=== PATIENT | female | born 1975 | race American Indian/Alaskan Native ===

== ENCOUNTER 2016-10-14 14:35 | Inpatient (IN) | payer MEDICAID, OTHER ==
[2016-10-14 14:35] VITALS: BMI 23.8
--- NOTE | 2016-10-14 15:04 | ED PDOC ---
HPI: Psych/Substance Abuse Time Seen by Provider: 10/14/16 14:54 Chief Complaint (Nursing): Psychiatric Evaluation Chief Complaint (Provider): Psychiatric Evaluation History Per: Patient, Family (brother) History/Exam Limitations: no limitations Suicide/Self Injury Attempted (Context): None Associated Symptoms: denies: Suicidal Thoughts (denies), Other (no homicidal ideation or auditory/visual hallucinations) Involuntary Hold By: None Additional Complaint(s): Mita Estrella is a 41 year old female, with a past medical history inclusive of schizoaffective disorder, depression, OCD and panic disorder, who presents to the ED on 10/14/16, accompanied by her brother, for a psychiatric evaluation. Per brother, patient had been psychiatrically admitted to this facility 1 month ago, at which time she had been started on Wellbutrin. Patient lives alone and has reportedly been noncompliant with her medications, with brother expressing concerns that she is deteriorating and not taking care of herself. Upon interview, patient has no physical complaints and further denies suicidal/homicidal ideation or auditory/visual hallucinations. PMD: none Past Medical History Reviewed: Historical Data, Nursing Documentation, Vital Signs Vital Signs: Last Vital Signs Temp 98.4 F 10/14/16 14:48 Pulse 71 10/14/16 14:48 Resp 16 10/14/16 14:48 BP 128/68 10/14/16 14:48 Pulse Ox 100 10/14/16 14:48 - Medical History PMH: Depression, Schizophrenia (schizoaffective) Denies: Diabetes, Hepatitis, HIV, HTN, Chronic Kidney Disease, Seizures, Sexually Transmitted Disease Other PMH: OCD, panic disorder - Surgical History Other surgeries: myomectomy - Family History Family History: States: Diabetes, Other (suicide) - Living Arrangements Living Arrangements: Alone - Social History Current smoker - smoking cessation education provided: No Alcohol: None Drugs: Denies - Immunization History Hx Tetanus Toxoid Vaccination: No Hx Influenza Vaccination: No Hx Pneumococcal Vaccination: No - Home Medications Home Medications: Ambulatory Orders Medication Instructions Recorded ARIPiprazole [Abilify] 10 mg PO HS #30 tab 08/06/16 - Allergies Allergies/Adverse Reactions: Allergies Allergy/AdvReac Type Severity Reaction Status Date / Time aripiprazole [From Abilify] Allergy RASH Verified 10/14/16 14:48 Review of Systems ROS Statement: Except As Marked, All Systems Reviewed And Found Negative Psych: Positive for: Other (psychiatric evaluation). Negative for: Psychosis ( no auditory/visual hallucinations), Suicidal ideation (no homicidal ideation) Physical Exam - Reviewed Nursing Documentation Reviewed: Yes Vital Signs Reviewed: Yes - Physical Exam Appears: Positive for: Non-toxic, No Acute Distress Head Exam: Positive for: ATRAUMATIC, NORMOCEPHALIC Skin: Positive for: Normal Color, Warm, Dry Eye Exam: Positive for: Normal appearance, PERRL Cardiovascular/Chest: Positive for: Regular Rate, Rhythm. Negative for: Murmur Respiratory: Positive for: Normal Breath Sounds. Negative for: Respiratory Distress Gastrointestinal/Abdominal: Positive for: Normal Exam, Soft. Negative for: Tenderness Back: Positive for: Normal Inspection Extremity: Positive for: Normal ROM (moving all extremities) Neurologic/Psych: Positive for: Alert, Oriented, Mood/Affect (flat, detached) - Laboratory Results Result Diagrams: 10/14/16 15:48 10/14/16 15:48 - ECG Interpretation Of ECG: NSR 69 bpm, no acute finding, reviewed by PA and ED attending. O2 Sat by Pulse Oximetry: 100 (RA) Pulse Ox Interpretation: Normal - Other Rad chest x-ray X-Ray: Interpreted by Me, Viewed By Me X-Ray Interpretation: no acute finding Medical Decision Making Medical Decision Makin:54 Initial Impression: will clear patient medically for crisis evaluation Initial Plan: * Labs * Alcohol Serum * Upreg * Urine Drug Screen * Crisis Evaluation * Reevaluation 16:35 Patient has been evaluated by Crisis and meets criterion for psychiatric admission, with a diagnosis of schizophrenia as per Dr. Adams (psychiatrist extractions technician). Patient has agreed to sign in voluntarily for further treatment. Glucose is low at 60, patient given food tray, repeat fingerstick after eating was 94. Patient is medically stable for psychiatric admission. Scribe Attestation: Documented by Asmita Herman, acting as a scribe for Maribell Rodriguez PA-C. Provider Scribe Attestation: All medical record entries made by the Scribe were at my direction and personally dictated by me. I have reviewed the chart and agree that the record accurately reflects my personal performance of the history, physical exam, medical decision making, and the department course for this patient. I have also personally directed, reviewed, and agree with the discharge instructions and disposition. Disposition - Clinical Impression Clinical Impression: Schizophrenia - Patient ED Disposition Is Patient to be Admitted: Yes - Disposition Disposition Time: 17:40 Condition: FAIR - Pt Status Changed To: Hospital Disposition Of: Inpatient - Admit Certification Admit to Inpatient:: After my assessment, the patient will require hospitalization for at least two midnights. This is because of the severity of symptoms shown, intensity of services needed, and/or the medical risk in this patient being treated as an outpatient. - POA Present On Arrival: None Results - Lab Results Lab Results: 10/14/16 10/14/16 16:03 15:48 WBC 10.0 RBC 5.26 H Hgb 13.2 Hct 41.3 MCV 78.6 L MCH 25.1 L MCHC 32.0 L RDW 16.4 H Plt Count 285 MPV 8.8 Neut % (Auto) 72.3 Lymph % (Auto) 21.2 Gaines % (Auto) 5.0 Eos % (Auto) 0.4 Baso % (Auto) 1.1 Neut # 7.2 H Lymph # 2.1 Gaines # 0.5 Eos # 0.0 Baso # 0.1 Sodium 145 Potassium 3.8 Chloride 105 Carbon Dioxide 21 L Anion Gap 23 H BUN 8 Creatinine 0.8 Est GFR ( Amer) > 60 Est GFR (Non-Af Amer) > 60 Random Glucose 60 L Calcium 9.7 Total Bilirubin 0.8 AST 35 ALT 22 Alkaline Phosphatase 116 Total Protein 9.0 H Albumin 4.4 Globulin 4.6 H Albumin/Globulin Ratio 1.0 Urine Color Yellow Urine Clarity Slighty-cloudy Urine pH 6.0 Ur Specific [place] 1.027 Urine Protein 30 Urine Glucose (UA) Neg Urine Ketones Negative Urine Blood Negative Urine Nitrate Negative Urine Bilirubin Negative Urine Urobilinogen 0.2-1.0 Ur Leukocyte Esterase Neg Urine RBC (Auto) 5 H Urine Microscopic WBC 2 Ur Squamous Epith Cells 7 H Urine Bacteria Rare Urine Opiates Screen Negative Urine Methadone Screen Negative Ur Barbiturates Screen Negative Ur Phencyclidine Scrn Negative Ur Amphetamines Screen Negative U Benzodiazepines Scrn Negative U Oth Cocaine Metabols Negative U Cannabinoids Screen Negative Alcohol, Quantitative < 10
[2016-10-14 15:54] LABS: BASO # 0.1 K/uL (0.0-0.2); BASO % 1.1 % (0.0-2.0); EOS % 0.4 % (0.0-4.0); HEMATOCRIT 41.3 % (34.0-47.0); LYMPH # 2.1 K/uL (1.0-4.3); LYMPH % 21.2 % (20.0-40.0); MEAN CELL VOLUME 78.6 fl (81.0-99.0); MEAN CORPUSCULAR HEMOGLOBIN 25.1 pg (27.0-31.0); MEAN PLATELET VOLUME 8.8 fl (7.2-11.7); MONO # 0.5 K/uL (0.0-0.8); NEUT # 7.2 K/uL (1.8-7.0); NEUT % 72.3 % (50.0-75.0); RED CELL DISTRIBUTION WIDTH 16.4 % (11.5-14.5)
[2016-10-14 16:04] LABS: ALCOHOL SERUM < 10 mg/dl (0-10); ALKALINE PHOSPHATASE 116 U/L (38-126); ALT/SGPT 22 U/L (9-52); AST/SGOT 35 U/L (14-36); BILIRUBIN,TOTAL 0.8 mg/dl (0.2-1.3); BLOOD UREA NITROGEN 8 mg/dl (7-17); CALCIUM 9.7 mg/dL (8.4-10.2); CARBON DIOXIDE 21 mmol/L (22-30); CHLORIDE 105 mmol/L (98-107); GFR AFRICAN-AMERICAN > 60; GLUCOSE,RANDOM 60 mg/dL (65-105); POTASSIUM 3.8 MMOL/L (3.6-5.0); SODIUM 145 mmol/l (132-148)
[2016-10-14 17:04] LABS: RBC URINE 5 /hpf (0-3); URINE BACTERIA RARE (<OCC); URINE BILIRUBIN NEGATIVE (NEGATIVE); URINE BLOOD NEGATIVE (NEGATIVE); URINE COLOR YELLOW (YELLOW); URINE GLUCOSE (UA) NEG (Normal); URINE KETONE NEGATIVE (NEGATIVE); URINE LEUKOCYTE ESTERASE NEG Leu/uL (Negative); URINE PROTEIN 30 mg/dL (NEGATIVE); URINE UROBILINOGEN 0.2-1.0 mg/dL (0.2-1.0); WBC URINE 2 /hpf (0-5)
--- NOTE | 2016-10-14 18:05 | RAD ---
HISTORY: Medical clearance. Portable upright study 17:11. COMPARISON: No prior. FINDINGS: LUNGS: No active pulmonary disease. PLEURA: No significant pleural effusion identified, no pneumothorax apparent. CARDIOVASCULAR: Normal. OSSEOUS STRUCTURES: No significant abnormalities. VISUALIZED UPPER ABDOMEN: Normal. OTHER FINDINGS: None. IMPRESSION: No active disease. Concordant results with the preliminary interpretation rendered by the emergency department physician procedure.
[2016-10-14] MEDS ORDERED: DiphenhydrAMINE 50 mg/ml Inj IM PRN (18:53)
[2016-10-14] MEDS ORDERED: Magnesium Hydroxide Susp 30 ml UD PO PRN (18:53)
[2016-10-14] MEDS ORDERED: Alum-Mag Hydrox-Simethicone Susp (30 mL) PO PRN (18:53)
[2016-10-15 08:08] LABS: T4 7.13 ug/dl (5.5-11.0)
[2016-10-15 08:21] LABS: THYROID STIMULATING HORMONE 0.57 mIU/ML (0.46-4.68)
--- NOTE | 2016-10-15 12:40 | PCM.PSYCH ---
Initial Psychiatric Evaluation - Initial Psychiatric Evaluation Type of Admission: Voluntary Legal Status: Capacity Chief Complaint (in patient's own words): i need to go back on my wellbutrin Patient's Reaction to Hospitalization: cooperative History of Present Illness and Precipitating Events: 41 yo female, admitted twice previously here. she has been exhibiting psychotic/ ocd behaviors in the community. apparently she has lost her housing. she showed up at family's house on [place] wanting to move in. pt's behaviors are destructive at home. she is internally preoccupied, withdrawn, appears to be paranoid. she is minimizing her psychotic symptoms. she is focused on guilt over her mother's . she is ambivalent about receiving treatment and did not follow up with aftercare or medications after she left the hospital a few months ago. she is denying any suicidal thoughts currently. Current Medications: Active Medications Generic Name Dose Route Start Last Admin Trade Name Freq PRN Reason Stop Dose Admin Acetaminophen 650 mg 10/14/16 18:53 Tylenol 325mg Tab PO Q4 PRN Pain, moderate (4-7) Al Hydrox/Mg Hydrox/Simethicone 30 ml 10/14/16 18:53 Maalox Plus 30 Ml PO Q4 PRN Dyspepsia Diphenhydramine HCl 50 mg 10/14/16 18:53 Benadryl PO Q6 PRN Extrapyramidal Symptoms Diphenhydramine HCl 50 mg 10/14/16 18:53 Benadryl IM Q6 PRN Extrapyramidal S/S Unable PO Diphenhydramine HCl 50 mg 10/14/16 20:25 10/14/16 21:45 Benadryl PO 50 mg HS PRN Administration Sleep Haloperidol 5 mg 10/14/16 18:53 Haldol PO Q4 PRN Agitation Haloperidol Lactate 5 mg 10/14/16 18:53 Haldol IM Q4 PRN Agitation, Unable to Take PO Lorazepam 2 mg 10/14/16 18:53 10/14/16 21:45 Ativan PO 2 mg Q4 PRN Administration Anxiety/Agitation Lorazepam 2 mg 10/14/16 18:53 Ativan IM Q4 PRN Anxiety/Agitation,Unable PO Magnesium Hydroxide 30 ml 10/14/16 18:53 Milk Of Magnesia PO HS PRN Constipation Quetiapine Fumarate 25 mg 10/15/16 22:00 Seroquel PO HS CARLOS states sidney gave her a rash. she points to dry skin on her neck. Past Psychiatric History - Past Psychiatric History Previous Treatment History: Inpatient Prior Professional Help: has refused aftercare, refused medications in past History of Abuse: denies History of ETOH/Drug Use: denies History of Family Illness: denies Pertinent Medical Hx (Current Medical&Sleep Prob, Allergies): Allergies Allergy/AdvReac Type Severity Reaction Status Date / Time aripiprazole [From [place]] Allergy RASH Verified 10/14/16 14:48 per chart pt has uterine fibroids? Review of Systems - Psychiatric Psychiatric: As Per HPI Mental Status Examination - Personal Presentation Personal Presentation: Looks stated age - Affect Affect: Flat - Motor Activity Motor Activity: Calm - Reliability in Providing Information Reliability in Providing Information: Poor, due to alteration in thoughts - Speech Speech: Other (underproductive) - Mood Mood: Depressed - Formal Thought Process Formal Thought Process: Delusions, Paranoia, Other (thought blocking) - Obsessions/Compulsions Obsessions: Yes Compulsions: Yes Description of Obsession/Compulsion: per report engaging in ocd- washing behaviors at home - Cognitive Functions Orientation: Person, Place, Situation, Time Sensorium: Alert Attention/Concentration: Easily distracted Abstract Thinking: [place] Estimate of Intelligence: Average Judgement: Intact, as evidence by: Insight regarding need for hospitalization ( amvivalent about her treatment) Memory: Recent intact, as evidence by: Ability to recall events of the day, Remote intact, as evidenced by: Abilit to recall sig. life events - Risk Risk: Suicidal (denies current suicidal thoughts), Diminished functioning (has lost her home/usp placement. does not follow up with care, poor self care) - Strength & Assets Inventory Strength & Assets Inventory: Intelligence, Family support - Limitations Limitations: Other (homeless) DSM 5 DX - DSM 5 DSM 5 Diagnosis: schizophrenia, paranoid type - Recommended/Plan of Treatment Treatment Recommendations and Plan of Treatment: admit to [facility] for safety and observation gather collateral information provide supportive therapy adjust medications- pt will only agree to seroquel at night for sleep. discussed r/b/se with pt hospitalist consult disposition planning Projected ELOS: 5-7 days Prognosis: fair - Smoking Cessation Smoking Cessation Initiated: No Reason for not providing: declines
--- NOTE | 2016-10-15 18:09 | CARD ---
APPROVED REPORT EKG Measurement Heart [id number] <Conclusion> Normal sinus rhythm Normal ECG
--- NOTE | 2016-10-16 12:38 | PCM.PYCHPN ---
Psychiatric Progress Note - Psychiatric Progress Note Patient seen today, length of contact: discussed with team Patient Chief Complaint: i slept well Problems Identified/Issues Discussed: pt remains internally preoccupied. somewhat bizarre in her behaviors. refusing groups at times. she took seroquel and denies side effects. she reports improved sleep. Medication Change: Yes Medical Record Reviewed: Yes Mental Status Examination - Cognitive Function Orientation: Person, Place, Situation, Time Memory: Intact Attention: Poor Concentration: Poor Association: WNL Fund of Knowledge: Poor Decription of patient's judgement and insights: poor - Mood Mood: Depressed - Affect Affect: Flat - Speech Speech: Appropriate - Formal Thought Process Formal Thought Process: Delusions, Paranoia, Other (thought blocking) Psychotic Thoughts and Behaviors: internally preoccupied - Suicidal Ideation Suicidal Ideation: No - Homicidal Ideation Homicidal Ideation: No Goal/Treatment Plan - Goal/Treatment Plan Need for Continued Stay: Remain at risks for inpatient hospitalization, Severe functional impairment Progress Toward Problem(s) and Goals/Treatment Plan: schizophrenia pt needs further treatment will titrate up seroquel to target her psychotic symptoms Estimated Date of D/C: 10/22/16
--- NOTE | 2016-10-16 13:29 | CP.PCM.HP ---
History of Present Illness - History of Present Illness History of Present Illness: Hospitalist Consult H&P (Patient was seen and examined at 12 PM 10/16/16 [id number] with Psychiatry Nurse Cheli kramer) 41 year old female who was admitted to the in-patient Psychiatry Unit for treatment for Schizophrenia Paranoid Type Currently upon FULL ROS there is NO chest pain, NO palpitations, NO SOB/Cough/ Wheezing, NO dysphagia/odynophagia, NO abdominal pain, NO n/v/d/c (last bowel movement was yesterday), NO black/bloody stools, NO lightheadedness/dizziness, NO headaches, NO new changes in vision/eye pain, NO new changes in hearing/ear pain, NO edema, NO paresthesias PMHx: Anxiety/Depression PSHx: Myomectomy ALL: Aripiprazole Medications: Please see list below Social Hx: Homeless, NO tobacco, NO alcohol, NO illicit drugs Family Hx: Mom ( of complications of Diabetes), Dad (Healthy) Present on Admission - Present on Admission Any Indicators Present on Admission: Yes History of DVT/PE: No History of Uncontrolled Diabetes: No Urinary Catheter: No Review of Systems - Review of Systems Review of Systems: Please see above Past Patient History - Past Medical History & Family History Pertinent Family History: Please see above - Past Social History Alcohol: None Drugs: Denies - CARDIAC Hx Hypertension: No - PULMONARY Hx Tuberculosis: No - NEUROLOGICAL Hx Seizures: No - HEENT Hx HEENT Problems: No - RENAL Hx Chronic Kidney Disease: No - ENDOCRINE/METABOLIC Hx Endocrine Disorders: No - HEMATOLOGICAL/ONCOLOGICAL Hx Human Immunodeficiency Virus (HIV): No - INTEGUMENTARY Hx Dermatological Problems: No - MUSCULOSKELETAL/RHEUMATOLOGICAL Hx Musculoskeletal Disorders: No - GASTROINTESTINAL Hx Gastrointestinal Disorders: No - GENITOURINARY/GYNECOLOGICAL Hx Sexually Transmitted Disorders: No - PSYCHIATRIC Hx Substance Use: No - SURGICAL HISTORY Hx Surgeries: No Other/Comment: myomectomy 4 months ago - ANESTHESIA Hx Anesthesia: Yes Hx Anesthesia Reactions: No Hx Malignant Hyperthermia: No Meds Allergies/Adverse Reactions: Allergies Allergy/AdvReac Type Severity Reaction Status Date / Time aripiprazole [From Abilify] Allergy RASH Verified 10/14/16 14:48 Physical Exam - Constitutional Appears: Non-toxic, No Acute Distress - Head Exam Head Exam: ATRAUMATIC, NORMAL INSPECTION, NORMOCEPHALIC - Eye Exam Eye Exam: EOMI, Normal appearance, PERRL Pupil Exam: NORMAL ACCOMODATION, PERRL - ENT Exam ENT Exam: Mucous Membranes Moist, Normal Exam, Normal External Ear Exam, Normal Oropharynx - Neck Exam Neck exam: Positive for: Normal Inspection Additional comments: NO lymphadenopathy NO thyromegaly - Respiratory Exam Respiratory Exam: Clear to Auscultation Bilateral, NORMAL BREATHING PATTERN Additional comments: CTA B/L, NO R/R/W - Cardiovascular Exam Cardiovascular Exam: REGULAR RHYTHM, +S1, +S2 Additional comments: NO M/R/G - GI/Abdominal Exam GI & Abdominal Exam: Normal Bowel Sounds, Soft Additional comments: BSx4, Soft, NT, ND, NO HSM, NO guarding/rebound tenderness - Extremities Exam Extremities exam: Positive for: normal inspection Additional comments: NO edema Capillary Refill is 2 seconds Pulses are strong and equal - Neurological Exam Neurological exam: CN II-XII Intact Results - Vital Signs Recent Vital Signs: Last Vital Signs Temp 97.9 F 10/16/16 09:00 Pulse 65 10/16/16 09:00 Resp 16 10/16/16 09:00 BP 132/67 10/16/16 09:00 Pulse Ox 99 10/16/16 09:00 - Labs Result Diagrams: 10/14/16 15:48 10/14/16 15:48 Labs: Laboratory Results - last 24 hr 10/15/16 07:10 Hemoglobin A1c 5.5 RPR Nonreactive Assessment & Plan (1) Schizophrenia, paranoid type Assessment and Plan: Treatment as per Psychiatry Team Status: Acute (2) Anemia Assessment and Plan: Considering the RBC indices this is likely Iron Deficiency Anemia and Iron Studies have been ordered. If Iron Deficiency is confirmed then patient should be started on FeSO4 325 mg PO 2x/day, and she should be instructed to follow up with GI for Colonoscopy and with Marketing Executive for SENIOR MEDICAL TRANSCRIPTIONIST Exam/Pap Smear. Status: Acute
--- NOTE | 2016-10-17 11:18 | PCM.PYCHPN ---
Psychiatric Progress Note - Psychiatric Progress Note Patient seen today, length of contact: discussed with team Patient Chief Complaint: i am fine Problems Identified/Issues Discussed: pt reports good sleep. no c/o medication side effects. taking medication as prescribed. Medication Change: No Medical Record Reviewed: Yes Mental Status Examination - Cognitive Function Orientation: Person, Place, Situation, Time Memory: Intact Attention: Poor Concentration: Poor Association: WNL Fund of Knowledge: Poor Decription of patient's judgement and insights: improving insight - Mood Mood: Depressed - Affect Affect: Flat - Speech Speech: Appropriate - Formal Thought Process Formal Thought Process: Delusions, Paranoia, Other (thought blocking) - Suicidal Ideation Suicidal Ideation: No - Homicidal Ideation Homicidal Ideation: No Goal/Treatment Plan - Goal/Treatment Plan Need for Continued Stay: Remain at risks for inpatient hospitalization, Severe functional impairment Progress Toward Problem(s) and Goals/Treatment Plan: schizophrenia pt needs further treatment will titrate up seroquel to target her psychotic symptoms- hold at 50mg tonight and increase to 100mg tomorrow Estimated Date of D/C: 10/22/16
[2016-10-17 12:34] VITALS: O2SAT 80
[2016-10-17 12:48] LABS: IRON 77 ug/dL (37-170)
--- NOTE | 2016-10-18 11:40 | PCM.PYCHPN ---
Psychiatric Progress Note - Psychiatric Progress Note Patient seen today, length of contact: discussed with team Patient Chief Complaint: i am ok Problems Identified/Issues Discussed: pt isolates in room. when she was seen today, she is with sheets over head and she seems annoyed having to talk to this auto service writer. she reports she is sleeping through the night and denies medication side effects. she appears to be paranoid and internally preoccupied. Medication Change: Yes (increase seroquel) Medical Record Reviewed: Yes Mental Status Examination - Cognitive Function Orientation: Person, Place, Situation, Time Memory: Intact Attention: Poor Concentration: Poor Association: WNL Fund of Knowledge: Poor Decription of patient's judgement and insights: improving - Mood Mood: Depressed - Affect Affect: Flat - Speech Speech: Appropriate - Formal Thought Process Formal Thought Process: Delusions, Paranoia, Other (thought blocking) Psychotic Thoughts and Behaviors: paranoid - Suicidal Ideation Suicidal Ideation: No - Homicidal Ideation Homicidal Ideation: No Goal/Treatment Plan - Goal/Treatment Plan Need for Continued Stay: Remain at risks for inpatient hospitalization, Severe functional impairment Progress Toward Problem(s) and Goals/Treatment Plan: schizophrenia pt needs further treatment will titrate up seroquel to target her psychotic symptoms- increase to 75mg tonight Estimated Date of D/C: 10/22/16
--- NOTE | 2016-10-19 10:18 | PCM.PYCHPN ---
Psychiatric Progress Note - Psychiatric Progress Note Patient seen today, length of contact: discussed with team Patient Chief Complaint: i will be ok Problems Identified/Issues Discussed: pt still isolates in room. she takes her medications as prescribed. she does not interact with peers. she walks away from treatment providers when approached. she is refusing groups. Medication Change: Yes (increase seroquel to 100mg) Medical Record Reviewed: Yes Mental Status Examination - Cognitive Function Orientation: Person, Place, Situation, Time Memory: Intact Attention: Poor Concentration: Poor Association: WNL Fund of Knowledge: Poor Decription of patient's judgement and insights: fair - Mood Mood: Depressed - Affect Affect: Flat - Speech Speech: Appropriate - Formal Thought Process Formal Thought Process: Delusions, Paranoia, Other (thought blocking) Psychotic Thoughts and Behaviors: evasive - Suicidal Ideation Suicidal Ideation: No - Homicidal Ideation Homicidal Ideation: No Goal/Treatment Plan - Goal/Treatment Plan Need for Continued Stay: Remain at risks for inpatient hospitalization, Severe functional impairment Progress Toward Problem(s) and Goals/Treatment Plan: schizophrenia pt needs further treatment will titrate up seroquel to target her psychotic symptoms- increase to 100mg tonight Estimated Date of D/C: 10/22/16
--- NOTE | 2016-10-20 12:05 | PCM.PYCHPN ---
Psychiatric Progress Note - Psychiatric Progress Note Patient seen today, length of contact: discussed with team Patient Chief Complaint: i am ok Problems Identified/Issues Discussed: pt refusing groups. is taking medications. no c/o medication side effects. evasive and not interacting with staff/peers Medication Change: Yes (increase seroquel to 150mg) Medical Record Reviewed: Yes Mental Status Examination - Cognitive Function Orientation: Person, Place, Situation, Time Memory: Intact Attention: Poor Concentration: Poor Association: WNL Fund of Knowledge: Poor Decription of patient's judgement and insights: fair - Mood Mood: Depressed - Affect Affect: Flat - Speech Speech: Appropriate - Formal Thought Process Formal Thought Process: Delusions, Paranoia, Other (thought blocking) Psychotic Thoughts and Behaviors: evasive - Suicidal Ideation Suicidal Ideation: No - Homicidal Ideation Homicidal Ideation: No Goal/Treatment Plan - Goal/Treatment Plan Need for Continued Stay: Remain at risks for inpatient hospitalization, Severe functional impairment Progress Toward Problem(s) and Goals/Treatment Plan: schizophrenia pt needs further treatment will titrate up seroquel to target her psychotic symptoms- increase to 150mg tonight Estimated Date of D/C: 10/22/16
--- NOTE | 2016-10-21 11:37 | PCM.PYCHPN ---
Psychiatric Progress Note - Psychiatric Progress Note Patient seen today, length of contact: discussed with team Patient Chief Complaint: i feel fine Problems Identified/Issues Discussed: pt still refusing groups and with very limited peer interactions. she takes medication as prescribed. denies medication side effects. Medication Change: Yes (increase seroquel to 200mg) Medical Record Reviewed: Yes Mental Status Examination - Cognitive Function Orientation: Person, Place, Situation, Time Memory: Intact Attention: Poor Concentration: Poor Association: WNL Fund of Knowledge: Poor Decription of patient's judgement and insights: fair - Mood Mood: Depressed - Affect Affect: Flat - Speech Speech: Appropriate - Formal Thought Process Formal Thought Process: Delusions, Paranoia, Other (thought blocking) Psychotic Thoughts and Behaviors: evasive/internally preoccupied - Suicidal Ideation Suicidal Ideation: No - Homicidal Ideation Homicidal Ideation: No Goal/Treatment Plan - Goal/Treatment Plan Need for Continued Stay: Remain at risks for inpatient hospitalization, Severe functional impairment Progress Toward Problem(s) and Goals/Treatment Plan: schizophrenia pt needs further treatment will titrate up seroquel to target her psychotic symptoms- increase to 200mg tonight Estimated Date of D/C: 10/28/16
--- NOTE | 2016-10-22 09:30 | PCM.PYCHDC ---
Mental Status Examination - Mental Status Examination Orientation: Person, Place, Situation, Time Memory: Intact Mood: Neutral Affect: Flat Speech: Soft Attention: Poor Concentration: Poor Association: Loose Fund of Knowledge: WNL Formal Thought Process: Paranoia, Other (internally preoccupied) Description of patient's judgement and insight: poor insight Psychotic Thoughts and Behaviors: evasive/internally preoccupied Suicidal Ideation: No Current Homicidal Ideation?: No Discharge Summary - Discharge Note Reason for Hospitalization: psychosis Psychiatric History (includes Medical, Family, Personal Hx): history of previous admissions for psychotic behaviors. Consultations:: List each consultation separately and include: 1. Reason for request. 2. Findings. 3. Follow-up Consultations: seen by the hospitalist Summary of Hospital Course include:: 1. Description of specific treatment plan utilized for patients during their course of treatmen. 2. Summarize the time- course for resolution of acute symptoms and/or regressed behaviors. 3. Describe issues identified and worked on during hospitalization. 4. Describe medication utilized. 5. Describe medical problems identified and treated. 6. Reassessment of suicide risk Summary of Hospital Course: 41 yo female, admitted twice previously here. she has been exhibiting psychotic/ ocd behaviors in the community. apparently she has lost her housing. she showed up at family's house on [address] wanting to move in. pt's behaviors are destructive at home. she is internally preoccupied, withdrawn, appears to be paranoid. she is minimizing her psychotic symptoms. she is focused on guilt over her mother's . she is ambivalent about receiving treatment and did not follow up with aftercare or medications after she left the hospital a few months ago. she is denying any suicidal thoughts currently. hospital course pt was admitted to [facility] and oriented to the unit. pt was placed on routine safety protocols. pt was seen by the hospitalist. she was started on abilify which she refused to take. she agreed to take seroquel and the dose was titrated up to 150mg hs. she was taking medications as prescribed and did not c/ o side effects. she was still isolative and internally preoccupied. she signed a 48 hour notice to leave the hospital. the team encouraged the pt to stay and continue to get treatment, however the pt was insistent on leaving. she was denying a/v hallucinations and was denying suicidal or homicidal thoughts at the time of discharge. her prescriptions were eprescribed to the [facility] pharmacy. - Final Diagnosis (DSM 5) Condition upon Discharge: FAIR DSM 5: schizophrenia, paranoid Disposition: HOME/ ROUTINE Follow-up Treatment Plan: follow up with aftercare as directed take medications as prescribed do not use alcohol, tobacco or other illicit substances call 911 if any suicidal or homicidal thoughts Prescriptions/Medication Reconciliation: QUEtiapine [SEROquel] 150 mg PO HS #45 tab - Smoking Cessation Smoking Cessation Medication prescribed: No Reason for not providing: declines - Antipsychotic Medications Pt discharged on 2 or more routine antipsychotic medications: No
[2016-10-22 12:22] VITALS: BP 109/70; PULSE 66; TEMP 97.7
[2016-10-22 16:53] VITALS: RESP 16
== END 2016-10-22 20:20 | disposition home or self-care (01) | DRG 430 ==
LOC: H.ER 14:35 → H.ERHOLD 16:41 → H.PSYCH 18:44
PROVIDERS: ADMIT Psychiatry & Neurology Psychiatry; ATTEND Psychiatry & Neurology Psychiatry
PROC: GZHZZZZ Group Psychotherapy (ICD-10-PCS; principal; 2016-10-14)
PROC: GZ56ZZZ Individual Psychotherapy, Supportive (ICD-10-PCS; 2016-10-14)
DX: F20.0 Paranoid schizophrenia (principal); Z91.14 Patient's other noncompliance with medication regimen; D50.9 Iron deficiency anemia, unspecified

== ENCOUNTER 2017-01-04 00:33 | Inpatient (IN) | payer SELFPAY ==
[2017-01-04 00:33] VITALS: BMI 23.8
--- NOTE | 2017-01-04 02:35 | ED PDOC ---
HPI: Psych/Substance Abuse Time Seen by Provider: 01/04/17 01:22 Chief Complaint (Nursing): Psychiatric Evaluation Chief Complaint (Provider): Psychiatric Evaluation History Per: Family (Brother) History/Exam Limitations: no limitations Current Symptoms Are (Timing): Still Present Suicide/Self Injury Attempted (Context): None Modifying Factor(s): None Additional History Per: Patient Additional Complaint(s): 41 year old female brought in by brother presents to ED for a psychiatric evaluation secondary to bizarre, erratic behavior and has a past medical history of paranoid schizophrenia. Brother states that patient is having hallucinations of rats in their home even though there are not present. Notes that patient ran out of the house and refuses to return. Brother states that patient has been noncompliant with her medications x2 months and has not followed up with her psychiatrist since last being discharged from the hospital. Brother also notes patient responding to internal stimuli, causing her to laugh to herself. Upon arrival to ED, patient denies all complaints ( hallucinations, suicidal/homicidal ideation) and desires a "clean place to stay ". PCP: None Past Medical History Reviewed: Historical Data, Nursing Documentation, Vital Signs Vital Signs: Last Vital Signs Temp 98.3 F 01/04/17 00:52 Pulse 84 01/04/17 00:52 Resp 16 01/04/17 00:52 BP 128/85 01/04/17 00:52 Pulse Ox 100 01/04/17 00:52 - Medical History PMH: Depression, Schizophrenia (schizoaffective) Denies: Diabetes, Hepatitis, HIV, HTN, Chronic Kidney Disease, Seizures, Sexually Transmitted Disease - Surgical History Surgical History: No Surg Hx - Family History Family History: States: Diabetes Denies: No Known Family Hx - Living Arrangements Living Arrangements: With Family - Social History Current smoker - smoking cessation education provided: No Ex-Smoker (has not smoked in the last 12 months): No Alcohol: None Drugs: Denies - Immunization History Hx Tetanus Toxoid Vaccination: No Hx Influenza Vaccination: No Hx Pneumococcal Vaccination: No - Home Medications Home Medications: Ambulatory Orders Medication Instructions Recorded No Known Home Med 01/04/17 - Allergies Allergies/Adverse Reactions: Allergies Allergy/AdvReac Type Severity Reaction Status Date / Time aripiprazole [From Abilify] Allergy RASH Verified 10/14/16 14:48 Review of Systems ROS Statement: Except As Marked, All Systems Reviewed And Found Negative (ROS as per brother, not patient) Psych: Positive for: Psychosis (hallucinations, responding to internal stimuli) . Negative for: Suicidal ideation, Other (homicidal ideation) Physical Exam - Reviewed Nursing Documentation Reviewed: Yes Vital Signs Reviewed: Yes - Physical Exam Appears: Positive for: Non-toxic, No Acute Distress Head Exam: Positive for: ATRAUMATIC Skin: Positive for: Normal Color, Warm, Dry Eye Exam: Positive for: Normal appearance ENT: Positive for: Normal ENT Inspection Neck: Positive for: Normal, Painless ROM, Supple Cardiovascular/Chest: Positive for: Regular Rate, Rhythm. Negative for: Murmur Respiratory: Positive for: Normal Breath Sounds. Negative for: Respiratory Distress Gastrointestinal/Abdominal: Positive for: Normal Exam, Soft. Negative for: Tenderness Back: Positive for: Normal Inspection Extremity: Positive for: Normal ROM. Negative for: Deformity Neurologic/Psych: Positive for: Alert, Oriented, Other (appears internally preoccupied). Negative for: Motor/Sensory Deficits - Laboratory Results Result Diagrams: 01/04/17 02:25 01/04/17 02:25 - ECG O2 Sat by Pulse Oximetry: 100 (RA) Pulse Ox Interpretation: Normal Medical Decision Making Medical Decision Makin Initial impression: delusional behavior in setting of known paranoid schizophrenia (noncompliant) Initial plan: * EKG * EtOH serum * Labs * UDrug screen * Crisis eval * UA 0245 Patient was evaluated by crisis and will be admitted for further treatment and stability under Dr. Tariq Estevez Dx: paranoid schizophrenia Condition: fair 0433 Patient is medically stable for psychiatric admission. Scribe Attestation: Documented by Joyce Gutiérrez acting as a scribe for Emanuel Oliva MD. Scribe Attestation: All medical record entries made by the Scribe were at my direction and personally dictated by me. I have reviewed the chart and agree that the record accurately reflects my personal performance of the history, physical exam, medical decision making, and the department course for this patient. I have also personally directed, reviewed, and agree with the discharge instructions and disposition. Disposition - Clinical Impression Clinical Impression: Schizophrenia, paranoid type - Patient ED Disposition Is Patient to be Admitted: Yes Doctor Will See Patient In The: Hospital Counseled Patient/Family Regarding: Diagnosis - Disposition Disposition Time: 02:45 Condition: FAIR - Pt Status Changed To: Hospital Disposition Of: Inpatient - Admit Certification Admit to Inpatient:: After my assessment, the patient will require hospitalization for at least two midnights. This is because of the severity of symptoms shown, intensity of services needed, and/or the medical risk in this patient being treated as an outpatient.
[2017-01-04 02:46] LABS: ALBUMIN 4.2 g/dL (3.5-5.0)
[2017-01-04 02:48] LABS: GFR AFRICAN-AMERICAN > 60; GFR NON-AFRICAN AMERICAN > 60
[2017-01-04 02:49] LABS: ALT/SGPT 29 U/L (9-52); AST/SGOT 32 U/L (14-36); BLOOD UREA NITROGEN 18 mg/dl (7-17); CALCIUM 9.5 mg/dL (8.4-10.2)
[2017-01-04 03:04] LABS: MEAN CELL VOLUME 80.2 fl (81.0-99.0); RBC 5.09 Mil/uL (3.80-5.20); WHITE BLOOD COUNT 11.4 K/uL (4.8-10.8)
[2017-01-04 03:05] LABS: BASO # 0.1 K/uL (0.0-0.2); BASO % 0.5 % (0.0-2.0); EOS # 0.1 K/uL (0.0-0.7); EOS % 1.2 % (0.0-4.0); LYMPH # 1.8 K/uL (1.0-4.3); LYMPH % 15.5 % (20.0-40.0); MEAN CORPUSCULAR HEMOGLOBIN 25.6 pg (27.0-31.0); MEAN CORPUSCULAR HGB CONC 31.9 g/dL (33.0-37.0); MEAN PLATELET VOLUME 9.6 fl (7.2-11.7); MONO # 0.9 K/uL (0.0-0.8); MONO % 7.8 % (0.0-10.0); NEUT # 8.6 K/uL (1.8-7.0); RED CELL DISTRIBUTION WIDTH 16.5 % (11.5-14.5)
[2017-01-04 03:55] LABS: BARBITURATES, UR NEGATIVE (NEGATIVE)
[2017-01-04 03:56] LABS: BENZODIAZEPINES, UR NEGATIVE (NEGATIVE)
[2017-01-04 03:59] LABS: OPIATES, UR NEGATIVE (NEGATIVE)
[2017-01-04 04:00] LABS: PHENCYCLIDINE, UR NEGATIVE (NEGATIVE)
[2017-01-04 04:10] LABS: SQUAMOUS EPITHIAL 1 /hpf (0-5); URINE BILIRUBIN NEGATIVE (NEGATIVE); URINE BLOOD MODERATE (NEGATIVE); URINE CALCIUM OXALATE CRYSTALS OCC /hpf (<OCC); URINE CLARITY CLEAR (Clear); URINE COLOR YELLOW (YELLOW); URINE GLUCOSE (UA) NEG (Normal); URINE LEUKOCYTE ESTERASE NEG Leu/uL (Negative); URINE NITRATE NEGATIVE (NEGATIVE); URINE PROTEIN 30 mg/dL (NEGATIVE); URINE UROBILINOGEN 0.2-1.0 mg/dL (0.2-1.0)
[2017-01-04 04:34] VITALS: O2SAT 100
[2017-01-04] MEDS ORDERED: Alum-Mag Hydrox-Simethicone Susp (30 mL) PO PRN (04:55)
[2017-01-04] MEDS ORDERED: DiphenhydrAMINE 50 mg/ml Inj IM PRN (04:55)
[2017-01-04] MEDS ORDERED: Magnesium Hydroxide Susp 30 ml UD PO PRN (04:55)
[2017-01-04] MEDS ORDERED: Bismuth Subsalicylate 262 mg/15 ml Sus (240 ml) PO PRN (04:59)
[2017-01-04 07:32] LABS: T4 7.37 ug/dl (5.5-11.0)
--- NOTE | 2017-01-04 08:33 | CARD ---
APPROVED REPORT EKG Measurement Heart [id number] <Conclusion> Normal sinus rhythm Normal ECG
--- NOTE | 2017-01-04 14:08 | PCM.PSYCH ---
Initial Psychiatric Evaluation - Initial Psychiatric Evaluation Type of Admission: Voluntary Legal Status: Capacity Chief Complaint (in patient's own words): i saw a rat Patient's Reaction to Hospitalization: signed a 48 hour notice History of Present Illness and Precipitating Events: 41 yo female who has been hospitalized 3 previous times for psychotic symptoms. she has been homeless but was apparently staying at her brothers. per the crisis report the brother had pt sent to ER because of his concerns with pt's psychotic symptoms- living in [facility], burning candles near the curtains in order to protect herself, not caring for her own adls, not leaving the home. pt seems to have decompensated since her mother's . she admits to being depressed, but states she doesn't take medications because "i need a year prescription" she does not follow up with aftercare. pt signed herself into the hosptial when encouraged by pes, but signed a 48 hour notice immediately after her arrival on the unit. she is isolating in her room and hiding under her blankets. she denies needing help and states she will only take paxil or seroquel. she denies having a disturbance of thoughts. she denies that her behavior has changed even when reminded that she was living on her own and working in the recent past. we discussed this poem writer's opinion that pt needs treatment she continues to deny needing treatment. Current Medications: Active Medications Generic Name Dose Route Start Last Admin Trade Name Freq PRN Reason Stop Dose Admin Acetaminophen 650 mg 01/04/17 04:59 Tylenol 325mg Tab PO Q4 PRN Pain, moderate (4-7) Al Hydrox/Mg Hydrox/Simethicone 30 ml 01/04/17 04:55 Maalox Plus 30 Ml PO Q4 PRN Dyspepsia Bismuth Subsalicylate 524 mg 01/04/17 04:59 Pepto-Bismol PO Q4 PRN Diarrhea Diphenhydramine HCl 50 mg 01/04/17 04:55 Benadryl IM Q6 PRN Extrapyramidal S/S Unable PO Diphenhydramine HCl 50 mg 01/04/17 04:55 Benadryl PO Q6 PRN Extrapyramidal Symptoms Diphenhydramine HCl 50 mg 01/04/17 04:59 Benadryl PO HS PRN Sleep Haloperidol 5 mg 01/04/17 04:55 Haldol PO Q4 PRN Agitation Haloperidol Lactate 5 mg 01/04/17 04:55 Haldol IM Q4 PRN Agitation, Unable to Take PO Lorazepam 2 mg 01/04/17 04:55 Ativan IM Q4 PRN Anxiety/Agitation,Unable PO Lorazepam 2 mg 01/04/17 04:55 Ativan PO Q4 PRN Anxiety/Agitation Magnesium Hydroxide 30 ml 01/04/17 04:55 Milk Of Magnesia PO HS PRN Constipation Quetiapine Fumarate 50 mg 01/04/17 22:00 Seroquel PO HS CARLOS does not follow up with aftercare Past Psychiatric History - Past Psychiatric History Previous Treatment History: Inpatient Prior Professional Help: does not follow up with aftercare treatment At what hospital: [facility] History of Abuse: denies History of ETOH/Drug Use: denies. uds is negative History of Family Illness: denies Pertinent Medical Hx (Current Medical&Sleep Prob, Allergies): Allergies Allergy/AdvReac Type Severity Reaction Status Date / Time aripiprazole [From Abilify] Allergy RASH Verified 10/14/16 14:48 No Known Home Med 01/04/17 Review of Systems - Psychiatric Psychiatric: As Per HPI, Abnormal Sleep Pattern, Behavioral Changes, Confusion, Depression, Difficulty Concentrating, Irritability, Paranoia Mental Status Examination - Personal Presentation Personal Presentation: Looks stated age Additional comments: hiding under sheets, sits up and removes sheets but avoids eye contact. - Affect Affect: Blunted - Motor Activity Motor Activity: Calm - Reliability in Providing Information Reliability in Providing Information: Poor, due to alteration in thoughts - Speech Speech: Other (evasive, vague) - Mood Mood: Depressed - Formal Thought Process Formal Thought Process: Delusions, Paranoia, Loosening of associations Additional comments: illogica, bizarre, guarded, paranoid - Hallucinations/Delusions Delusions: Persecution - Obsessions/Compulsions Obsessions: No Compulsions: No - Cognitive Functions Orientation: Person, Place, Situation, Time Sensorium: Alert Attention/Concentration: Easily distracted Abstract Thinking: [place] Estimate of Intelligence: Average Judgement: Imparied, as evidence by: Lack of insight into illness Memory: Recent intact, as evidence by: Ability to recall events of the day - Risk Risk: Suicidal (denies a/v hallucinations), Diminished functioning (unable to work or maintain a home, not caring for self, endagering safety of others) - Strength & Assets Inventory Strength & Assets Inventory: Family support, Employment history - Limitations Limitations: Other (does not follow up with treatment) DSM 5 DX - DSM 5 DSM 5 Diagnosis: schizophrenia, paranoid - Recommended/Plan of Treatment Treatment Recommendations and Plan of Treatment: admit to 3 for safety and observation gather collateral information provide supportive therapy adjust medications- start seroquel- pt gives consent and has taken hospitalist consult disposition planning- will screen for involuntary hospitalization as pt is a danger to self and others/property secondary to her decompensated mental illness which has resulted in a gross disturbance in her thoughts. she is denying need for treatment and has had 3 previous admissions without improvement and did not follow up with aftercare. family is expressing fears for patient's safety in the home and pt has lost her other housing options due to her behaviors and refusal to follow up with treatment. Projected ELOS: 3-5 days Prognosis: poor
--- NOTE | 2017-01-04 20:35 | CP.PCM.CON ---
History of Present Illness - History of Present Illness History of Present Illness: 41 yo female admitted to psyche unit because of psychotic symptoms and bizzare behaviour. Review of Systems - Review of Systems All systems: reviewed and no additional remarkable complaints except (aside from those mentioned above, 12 point system review were negative by me) Past Patient History - Past Social History Smoking Status: Unknown If Ever Smoked Alcohol: None Drugs: Denies - CARDIAC Hx Hypertension: No - PULMONARY Hx Tuberculosis: No - NEUROLOGICAL Hx Seizures: No - HEENT Hx HEENT Problems: No - RENAL Hx Chronic Kidney Disease: No - ENDOCRINE/METABOLIC Hx Endocrine Disorders: No - HEMATOLOGICAL/ONCOLOGICAL Hx Human Immunodeficiency Virus (HIV): No - INTEGUMENTARY Hx Dermatological Problems: No - MUSCULOSKELETAL/RHEUMATOLOGICAL Hx Musculoskeletal Disorders: No - GASTROINTESTINAL Hx Gastrointestinal Disorders: No - GENITOURINARY/GYNECOLOGICAL Hx Sexually Transmitted Disorders: No - PSYCHIATRIC Hx Substance Use: No - SURGICAL HISTORY Hx Surgeries: No Other/Comment: myomectomy 4 months ago - ANESTHESIA Hx Anesthesia: Yes Hx Anesthesia Reactions: No Hx Malignant Hyperthermia: No Meds Allergies/Adverse Reactions: Allergies Allergy/AdvReac Type Severity Reaction Status Date / Time aripiprazole [From [facility]] Allergy RASH Verified 10/14/16 14:48 - Medications Medications: Current Medications Acetaminophen (Tylenol 325mg Tab) 650 mg PO Q4 PRN PRN Reason: Pain, moderate (4-7) Al Hydrox/Mg Hydrox/Simethicone (Maalox Plus 30 Ml) 30 ml PO Q4 PRN PRN Reason: Dyspepsia Bismuth Subsalicylate (Pepto-Bismol) 524 mg PO Q4 PRN PRN Reason: Diarrhea Diphenhydramine HCl (Benadryl) 50 mg IM Q6 PRN PRN Reason: Extrapyramidal S/S Unable PO Diphenhydramine HCl (Benadryl) 50 mg PO Q6 PRN PRN Reason: Extrapyramidal Symptoms Diphenhydramine HCl (Benadryl) 50 mg PO HS PRN PRN Reason: Sleep Haloperidol (Haldol) 5 mg PO Q4 PRN PRN Reason: Agitation Haloperidol Lactate (Haldol) 5 mg IM Q4 PRN PRN Reason: Agitation, Unable to Take PO Lorazepam (Ativan) 2 mg IM Q4 PRN PRN Reason: Anxiety/Agitation,Unable PO Lorazepam (Ativan) 2 mg PO Q4 PRN PRN Reason: Anxiety/Agitation Magnesium Hydroxide (Milk Of Magnesia) 30 ml PO HS PRN PRN Reason: Constipation Quetiapine Fumarate (Seroquel) 50 mg PO HS CARLOS Physical Exam - Head Exam Head Exam: ATRAUMATIC - Eye Exam Eye Exam: absent: Scleral icterus - ENT Exam ENT Exam: Mucous Membranes Moist - Neck Exam Neck exam: Negative for: Meningismus - Respiratory Exam Respiratory Exam: absent: Rhonchi, Wheezes, Respiratory Distress - Cardiovascular Exam Cardiovascular Exam: REGULAR RHYTHM, +S1, +S2 - GI/Abdominal Exam GI & Abdominal Exam: Soft. absent: Tenderness - Rectal Exam Rectal Exam: Deferred - Neurological Exam Neurological exam: Alert, Oriented x3 - Psychiatric Exam Psychiatric exam: Normal Affect - Skin Skin Exam: Dry, Intact Results - Vital Signs Recent Vital Signs: Last Vital Signs Temp 97.6 F 01/04/17 16:10 Pulse 68 01/04/17 16:10 Resp 20 01/04/17 16:10 BP 102/58 L 01/04/17 16:10 Pulse Ox 100 01/04/17 04:34 - Labs Result Diagrams: 01/04/17 02:25 01/04/17 02:25 Labs: Laboratory Results - last 24 hr 01/04/17 01/04/17 01/04/17 03:42 03:42 06:40 Hemoglobin A1c Triglycerides 46 D Cholesterol 141 LDL Cholesterol Direct 74 HDL Cholesterol 47 Thyroxine (T4) 7.37 TSH 3rd Generation 0.64 Urine Color Yellow Urine Clarity Clear Urine pH 5.0 Ur Specific [place] 1.031 H Urine Protein 30 Urine Glucose (UA) Neg Urine Ketones 20 Urine Blood Moderate Urine Nitrate Negative Urine Bilirubin Negative Urine Urobilinogen 0.2-1.0 Ur Leukocyte Esterase Neg Urine RBC (Auto) 4 H Urine Microscopic WBC 2 Ur Squamous Epith Cells 1 Calcium Oxalate Crystal Occ H Urine Opiates Screen Negative Urine Methadone Screen Negative Ur Barbiturates Screen Negative Ur Phencyclidine Scrn Negative Ur Amphetamines Screen Negative U Benzodiazepines Scrn Negative U Oth Cocaine Metabols Negative U Cannabinoids Screen Negative RPR 01/04/17 01/04/17 06:40 06:40 Hemoglobin A1c 5.6 Triglycerides Cholesterol LDL Cholesterol Direct HDL Cholesterol Thyroxine (T4) TSH 3rd Generation Urine Color Urine Clarity Urine pH Ur Specific [place] Urine Protein Urine Glucose (UA) Urine Ketones Urine Blood Urine Nitrate Urine Bilirubin Urine Urobilinogen Ur Leukocyte Esterase Urine RBC (Auto) Urine Microscopic WBC Ur Squamous Epith Cells Calcium Oxalate Crystal Urine Opiates Screen Urine Methadone Screen Ur Barbiturates Screen Ur Phencyclidine Scrn Ur Amphetamines Screen U Benzodiazepines Scrn U Oth Cocaine Metabols U Cannabinoids Screen RPR Nonreactive Assessment & Plan (1) Schizophrenia Status: Acute Comment: psyche is managing
[2017-01-05 09:19] VITALS: PULSE 76; RESP 18; TEMP 98.1
--- NOTE | 2017-01-05 13:20 | PCM.PYCHPN ---
Psychiatric Progress Note - Psychiatric Progress Note Patient seen today, length of contact: in treatment team Patient Chief Complaint: i signed a 48 hour notice and i'll leave tomorrow Problems Identified/Issues Discussed: pt came to treatment team. she refuses to acknowledge she is screened and going to [facility] and insists she must leave because she signed a 48 hour notice. continues to state "you can't keep me just because i saw a rat" team tried to explain process of 48 hour notice and voluntary/involuntary admission to pt and she interrupted and refused to listen. informed pt she could talk to pt advocate. she did take her medications as prescribed last night Medication Change: No Medical Record Reviewed: Yes Mental Status Examination - Cognitive Function Orientation: Person, Place, Situation, Time Memory: Intact Attention: Poor Concentration: Poor Association: Loose Fund of Knowledge: Poor Decription of patient's judgement and insights: poor i/j - Mood Mood: Depressed, Anxious - Affect Affect: Blunted - Speech Speech: Appropriate - Formal Thought Process Formal Thought Process: Delusions, Paranoia, Loosening of associations, Perservation (regarding leaving the hospital) Psychotic Thoughts and Behaviors: disorganized appearance and behaviors. - Suicidal Ideation Suicidal Ideation: No - Homicidal Ideation Homicidal Ideation: No Goal/Treatment Plan - Goal/Treatment Plan Need for Continued Stay: Remain at risks for inpatient hospitalization, Severe functional impairment Progress Toward Problem(s) and Goals/Treatment Plan: schizophrenia, paranoid vs mdd with psychosis pt needs further treatment and stabilization and is awaiting transfer to [facility]. Estimated Date of D/C: 01/06/17
[2017-01-05 22:46] VITALS: BP 120/70
--- NOTE | 2017-01-06 15:09 | PCM.PYCHDC ---
Mental Status Examination - Mental Status Examination Orientation: Person, Place, Situation, Time Mood: Depressed Association: Loose Formal Thought Process: Delusions, Paranoia, Loosening of associations Description of patient's judgement and insight: poor i/j Psychotic Thoughts and Behaviors: disorganized appearance and behaviors. Suicidal Ideation: No Current Homicidal Ideation?: No Discharge Summary - Discharge Note Reason for Hospitalization: pt's family called mobile outreach after concerns with pt's behavior Psychiatric History (includes Medical, Family, Personal Hx): history of depression, psychosis. non-adherence to treatment Consultations:: List each consultation separately and include: 1. Reason for request. 2. Findings. 3. Follow-up Consultations: seen by hospitalist Summary of Hospital Course include:: 1. Description of specific treatment plan utilized for patients during their course of treatmen. 2. Summarize the time- course for resolution of acute symptoms and/or regressed behaviors. 3. Describe issues identified and worked on during hospitalization. 4. Describe medication utilized. 5. Describe medical problems identified and treated. 6. Reassessment of suicide risk Summary of Hospital Course: 41 yo female who has been hospitalized 3 previous times for psychotic symptoms. she has been homeless but was apparently staying at her brothers. per the crisis report the brother had pt sent to ER because of his concerns with pt's psychotic symptoms- living in squallor, burning candles near the curtains in order to protect herself, not caring for her own adls, not leaving the home. pt seems to have decompensated since her mother's . she admits to being depressed, but states she doesn't take medications because "i need a year prescription" she does not follow up with aftercare. pt signed herself into the hosptial when encouraged by pes, but signed a 48 hour notice immediately after her arrival on the unit. she is isolating in her room and hiding under her blankets. she denies needing help and states she will only take paxil or seroquel. she denies having a disturbance of thoughts. she denies that her behavior has changed even when reminded that she was living on her own and working in the recent past. we discussed this radio news writer's opinion that pt needs treatment she continues to deny needing treatment. hospital course pt was admitted to [facility] and oriented to the unit. she was seen by the hospitalist. she was seen by the treatment team. pt signed a 48 hour notice upon arrival to floor and was screened for involuntary hospitalization after this. she was found to meet criteria for further assessment and was [place] [facility] she was agreeing to take seroquel at time of discharge but was denying having any mental illness. - Final Diagnosis (DSM 5) Condition upon Discharge: FAIR DSM 5: psychotic disorder, unspecified r/o mdd with psychosis vs schizophrenia Disposition: Transfer [facility] Follow-up Treatment Plan: [place] [facility] [place] assessment and treatment - Smoking Cessation Smoking Cessation Medication prescribed: No - Antipsychotic Medications Pt discharged on 2 or more routine antipsychotic medications: No
== END 2017-01-05 23:45 | DRG 885 ==
LOC: H.ER 00:33 → H.ERHOLD 02:31 → H.STEP 04:53 → H.PSYCH 20:12
PROVIDERS: ADMIT Psychiatry & Neurology Psychiatry; ATTEND Psychiatry & Neurology Psychiatry
PROC: GZ56ZZZ Individual Psychotherapy, Supportive (ICD-10-PCS; principal; 2017-01-04)
DX: F29 Unspecified psychosis not due to a substance or known physiological condition (principal); Z91.19 Patient's noncompliance with other medical treatment and regimen

== ENCOUNTER 2017-02-11 01:19 | Observation (INO) | payer MEDICAID ==
[2017-02-11 01:19] VITALS: BMI 23.8
[2017-02-11 02:10] LABS: BASO # 0.1 K/uL (0.0-0.2); BASO % 0.8 % (0.0-2.0); EOS # 0.1 K/uL (0.0-0.7); EOS % 1.3 % (0.0-4.0); HEMATOCRIT 39.8 % (34.0-47.0); LYMPH # 2.4 K/uL (1.0-4.3); LYMPH % 28.8 % (20.0-40.0); MEAN CELL VOLUME 80.3 fl (81.0-99.0); MEAN CORPUSCULAR HEMOGLOBIN 25.9 pg (27.0-31.0); MEAN CORPUSCULAR HGB CONC 32.3 g/dL (33.0-37.0); MEAN PLATELET VOLUME 8.6 fl (7.2-11.7); MONO # 0.4 K/uL (0.0-0.8); MONO % 5.3 % (0.0-10.0); NEUT # 5.3 K/uL (1.8-7.0); NEUT % 63.8 % (50.0-75.0); NRBC % 0.1 % (0.0-0.0); RED CELL DISTRIBUTION WIDTH 15.2 % (11.5-14.5); WHITE BLOOD COUNT 8.3 K/uL (4.8-10.8)
[2017-02-11 02:26] LABS: ALB/GLOB RATIO 1.1 (1.0-2.1); ALCOHOL SERUM < 10 mg/dl (0-10); ALKALINE PHOSPHATASE 120 U/L (38-126); ALT/SGPT 32 U/L (9-52); AST/SGOT 21 U/L (14-36); BILIRUBIN,TOTAL 0.7 mg/dl (0.2-1.3); BLOOD UREA NITROGEN 8 mg/dl (7-17); CALCIUM 9.7 mg/dL (8.4-10.2); CARBON DIOXIDE 22 mmol/L (22-30); CHLORIDE 105 mmol/L (98-107); GFR AFRICAN-AMERICAN > 60; GLUCOSE,RANDOM 97 mg/dL (65-105); POTASSIUM 4.2 MMOL/L (3.6-5.0); SODIUM 138 mmol/l (132-148); TOTAL PROTEIN 7.9 G/DL (6.3-8.2)
[2017-02-11 02:29] LABS: RBC URINE 2 /hpf (0-3); URINE BILIRUBIN NEGATIVE (NEGATIVE); URINE BLOOD SMALL (NEGATIVE); URINE COLOR YELLOW (YELLOW); URINE GLUCOSE (UA) NEG (Normal); URINE KETONE TRACE mg/dL (NEGATIVE); URINE LEUKOCYTE ESTERASE NEG Leu/uL (Negative); URINE PROTEIN NEGATIVE (NEGATIVE); URINE UROBILINOGEN 0.2-1.0 mg/dL (0.2-1.0); WBC URINE 1 /hpf (0-5)
--- NOTE | 2017-02-11 02:48 | ED PDOC ---
HPI: Psych/Substance Abuse Time Seen by Provider: 02/11/17 01:34 Chief Complaint (Nursing): Psychiatric Evaluation Chief Complaint (Provider): Psychiatric Evaluatino History Per: Family (Brother) History/Exam Limitations: no limitations Current Symptoms Are (Timing): Still Present Suicide/Self Injury Attempted (Context): None Additional History Per: Patient Additional Complaint(s): 41 year old female brought in by brother presents to ED for a psychiatric evaluation and has a past medical history of paranoid schizophrenia. Patient was recently hospitalized at [facility] (involuntary) and brother states patient has been noncompliant with medications since discharge. Reports patient has been wandering the streets searching for dolls and notes bizarre behavior at home. Patient denies active complaints but appears internally preoccupied. PCP: None Past Medical History Reviewed: Historical Data, Nursing Documentation, Vital Signs Vital Signs: Last Vital Signs Temp 97.9 F 02/11/17 01:27 Pulse 65 02/11/17 01:27 Resp 16 02/11/17 01:27 BP 119/61 02/11/17 01:27 Pulse Ox 99 02/11/17 01:27 - Medical History PMH: Depression, Schizophrenia (schizoaffective) Denies: Diabetes, Hepatitis, HIV, HTN, Chronic Kidney Disease, Seizures, Sexually Transmitted Disease - Surgical History Surgical History: Denies: No Surg Hx Other surgeries: myomectomy - Family History Family History: States: Diabetes - Living Arrangements Living Arrangements: With Family (with brother) - Social History Current smoker - smoking cessation education provided: No Ex-Smoker (has not smoked in the last 12 months): No Alcohol: None Drugs: Denies - Immunization History Hx Tetanus Toxoid Vaccination: No Hx Influenza Vaccination: No Hx Pneumococcal Vaccination: No - Home Medications Home Medications: Ambulatory Orders Medication Instructions Recorded No Known Home Med 01/04/17 - Allergies Allergies/Adverse Reactions: Allergies Allergy/AdvReac Type Severity Reaction Status Date / Time aripiprazole [From Abilify] Allergy RASH Verified 10/14/16 14:48 Review of Systems ROS Statement: Except As Marked, All Systems Reviewed And Found Negative Psych: Positive for: Other (bizarre behavior) Physical Exam - Reviewed Nursing Documentation Reviewed: Yes Vital Signs Reviewed: Yes - Physical Exam Appears: Positive for: Non-toxic, No Acute Distress (Disheveled, poor state of hygiene) Head Exam: Positive for: ATRAUMATIC, NORMOCEPHALIC Skin: Positive for: Normal Color, Warm, Dry Eye Exam: Positive for: Normal appearance, EOMI, PERRL ENT: Positive for: Normal ENT Inspection Neck: Positive for: Normal, Painless ROM, Supple Cardiovascular/Chest: Positive for: Regular Rate, Rhythm. Negative for: Murmur Respiratory: Positive for: Normal Breath Sounds. Negative for: Respiratory Distress Gastrointestinal/Abdominal: Positive for: Normal Exam, Soft. Negative for: Tenderness Back: Positive for: Normal Inspection Extremity: Positive for: Normal ROM. Negative for: Deformity Neurologic/Psych: Positive for: Alert, Oriented, Mood/Affect (flat affect). Negative for: Motor/Sensory Deficits - Laboratory Results Result Diagrams: 02/11/17 02:06 02/11/17 02:06 - ECG O2 Sat by Pulse Oximetry: 99 (RA) Pulse Ox Interpretation: Normal Medical Decision Making Medical Decision Makin Initial impression: delusional behavior in setting of known paranoid schizophrenia Initial plan: * EtOH serum * Labs * UDrug screen * UPreg * UDip * UA * Crisis eval 0249 Crisis eval complete: patient will be referred for [facility] screening. * 1:1 OBS * ED OBS ADMISSION All further documentation will take place in the ED OBS section of the chart. Scribe Attestation: Documented by Joyce Gutiérrez acting as a scribe for Emanuel Oliva MD. Scribe Attestation: All medical record entries made by the Scribe were at my direction and personally dictated by me. I have reviewed the chart and agree that the record accurately reflects my personal performance of the history, physical exam, medical decision making, and the department course for this patient. I have also personally directed, reviewed, and agree with the discharge instructions and disposition. ED OBSERVATION Date of observation admission: 02/11/17 Time of observation admission: 02:30 - Observation admission statement Patient is being placed in observation because:: Pending [facility] screening - Goals of Observation Goals of observation are:: Completion of [facility] screening: disposition - Progress Note Progress Note: 02/11/17 03:15 Patient resting comfortably. Vitals stable. 02/11/17 04:30 Patient resting comfortably. Vitals stable. 02/11/17 05:55 Patient resting comfortably. Vitals stable. 02/11/17 07:00 Patient will be signed out to Dr. Appiah pending [facility] screener evaluation. Patient is medically stable for psychiatric admission. Disposition - Clinical Impression Clinical Impression: Schizophrenia - Patient ED Disposition Is Patient to be Admitted: Transfer of Care - Disposition Disposition: Transfer of Care Disposition Time: 02:30 Condition: FAIR Patient Signed Over To: Elda Appiah (at 0700) Handoff Comments: Pending [facility] screening - Pt Status Changed To: Hospital Disposition Of: Observation
--- NOTE | 2017-02-11 07:10 | ED PDOC ---
- Laboratory Results Result Diagrams: 02/11/17 02:06 02/11/17 02:06 - ECG O2 Sat by Pulse Oximetry: 99 (RA) Pulse Ox Interpretation: Normal <YonÓscar oliverosteetravon Phillip - Last Filed: 02/11/17 11:32> - Laboratory Results Result Diagrams: 02/11/17 02:06 02/11/17 02:06 <Alka Patel - Last Filed: 02/11/17 23:25> - Laboratory Results Result Diagrams: 02/11/17 02:06 02/11/17 02:06 <Pérez Oliveira - Last Filed: 02/12/17 02:05> Medical Decision Making <RomapeymanElda Marjan - Last Filed: 02/11/17 11:32> <Alka Patel - Last Filed: 02/11/17 23:25> <Pérez Oliveira - Last Filed: 02/12/17 02:05> Medical Decision Making: Time: 0700 --Patient was transferred from Dr. Oliva to nm. --Pending [facility] screening. Time: 11:32 --Patient was screened and approved for admission by [facility]. --Patient pending bed availability. Scribe Attestation: Documented by Renae Lyons, acting as a scribe for Elda Appiah MD. Provider Scribe Attestation: All medical record entries made by the Scribe were at my direction and personally dictated by me. I have reviewed the chart and agree that the record accurately reflects my personal performance of the history, physical exam, medical decision making, and the department course for this patient. I have also personally directed, reviewed, and agree with the discharge instructions and disposition. (Elda Appiah) 0100 -Patient will be transferred from Dr. Patel to nm Scribe Attestation: Documented by Barron Whitfield, acting as a scribe for Pérez Oliveira MD. Provider Scribe Attestation: All medical record entries made by the Scribe were at my direction and personally dictated by me. I have reviewed the chart and agree that the record accurately reflects my personal performance of the history, physical exam, medical decision making, and the department course for this patient. I have also personally directed, reviewed, and agree with the discharge instructions and disposition. (Pérez Oliveira) Disposition <Elda Appiah - Last Filed: 02/11/17 11:32> - POA Present On Arrival: None - Disposition Disposition: Transfer of Care Disposition Time: 23:25 Patient Signed Over To: Pérez Oliveira <Alka Patel - Last Filed: 02/11/17 23:25> <Pérez Oliveira - Last Filed: 02/12/17 02:05> - Clinical Impression Clinical Impression: Schizophrenia - Disposition Condition: FAIR
--- NOTE | 2017-02-12 06:38 | ED PDOC ---
- Laboratory Results Result Diagrams: 02/11/17 02:06 02/11/17 02:06 - ECG O2 Sat by Pulse Oximetry: 100 Pulse Ox Interpretation: Normal Medical Decision Making Medical Decision Makin Pt. signed out to [place] Pending [facility] evaluation. 700: Pt. stable overnight, no new events. Pt. to be signed out to Dr. Barton pending [facility] evaluation. Disposition - Clinical Impression Clinical Impression: Schizophrenia - POA Present On Arrival: None - Disposition Disposition: Transfer of Care Disposition Time: 07:00 Condition: FAIR Patient Signed Over To: Ray Barton III Handoff Comments: pending [facility] eval
--- NOTE | 2017-02-12 16:58 | ED PDOC ---
- Laboratory Results Result Diagrams: 02/11/17 02:06 02/11/17 02:06 - ECG O2 Sat by Pulse Oximetry: 98 Pulse Ox Interpretation: Normal Medical Decision Making Medical Decision Making: pt was endorsed from Dr Oliveira pending [facility] bed. Remained awake, alert and cooperative in ED, watching TV intermittently. Endorsed 4pm Dr Appiah Disposition - Clinical Impression Clinical Impression: Schizophrenia - POA Present On Arrival: None - Disposition Disposition: Transfer of Care Disposition Time: 16:00 Condition: FAIR Patient Signed Over To: Elda Appiah Handoff Comments: pending [facility] bed and transfer involuntary psych
--- NOTE | 2017-02-12 23:13 | ED PDOC ---
- Laboratory Results Result Diagrams: 02/11/17 02:06 02/11/17 02:06 - ECG O2 Sat by Pulse Oximetry: 98 - Progress ED Course And Treament: 1600 pt was endorsed from Dr Barton pending [facility] [place]. Remained awake, alert and cooperative in ED. Medical Decision Making Medical Decision Makin Signed out care to Dr Oliveira pending [facility] [place]. Disposition Counseled Patient/Family Regarding: Studies Performed, Diagnosis - Clinical Impression Clinical Impression: Schizophrenia - POA Present On Arrival: None - Disposition Disposition: Transfer of Care Disposition Time: 16:00 Condition: FAIR
--- NOTE | 2017-02-13 04:52 | ED PDOC ---
- Laboratory Results Result Diagrams: 02/11/17 02:06 02/11/17 02:06 - ECG O2 Sat by Pulse Oximetry: 99 Medical Decision Making Medical Decision Makin:00 Patient signed over to me by Dr. Appiah pending [facility] bed. 7:[address] over to [address] Castillo pending [facility] bed. Disposition - Clinical Impression Clinical Impression: Schizophrenia - POA Present On Arrival: None - Disposition Disposition: Transfer of Care Disposition Time: 07:00 Condition: FAIR Patient Signed Over To: Brittaney Castillo Handoff Comments: pending [facility] bed
--- NOTE | 2017-02-13 07:06 | ED PDOC ---
- Laboratory Results Result Diagrams: 02/11/17 02:06 02/11/17 02:06 - ECG O2 Sat by Pulse Oximetry: 99 (RA) Pulse Ox Interpretation: Normal Medical Decision Making Medical Decision Making: Receiving sign out: Patient signed out to me by Dr. Oliveira at 0700 pending [facility] bed. Scribe Attestation: Documented by Crista Rojo acting as a scribe for Brittaney Castillo MD. Provider Attestation: All medical record entries made by the Scribe were at my direction and personally dictated by me. I have reviewed the chart and agree that the record accurately reflects my personal performance of the history, physical exam, medical decision making, and the department course for this patient. I have also personally directed, reviewed, and agree with the discharge instructions and disposition. Disposition - Clinical Impression Clinical Impression: Schizophrenia - POA Present On Arrival: None - Disposition Disposition: Transfer of Care Disposition Time: 15:00 Condition: FAIR Patient Signed Over To: Elda Appiah Handoff Comments: Pending [facility] bed Progress Note - Review of Symptoms Events since last encounter: Time: 0900 Patient in room, vitals stable. Time: 1100 Patient resting in room, vitals stable. Time: 1200 Patient seen and evaluated by Dr. Estevez at bedside. Time: 1400 Patient resting in room, no acute distress. Time: 1500 Patient to be signed out to Dr. Appiah pending [facility] bed.
--- NOTE | 2017-02-13 12:03 | CP.PCM.CON ---
History of Present Illness - History of Present Illness History of Present Illness: This is a 42 yr old female with h/o schizophrenia paranoid type and brought to the ER because pt has been noncompliant with meds and wandering the streets ,in a bizarre way looking for dolls .pt as per family was recently admitted [place] [facility] [place] and recently d/c.pt is internally preoccupied and responding to hallucinations.pt does not want to be admitted voluntarily and wants to be d/ c.pt was screened by [facility] and accepted for psych admission and waiting for bed availability. Past Patient History - Past Social History Alcohol: None Drugs: Denies - CARDIAC Hx Hypertension: No - PULMONARY Hx Tuberculosis: No - NEUROLOGICAL Hx Seizures: No - HEENT Hx HEENT Problems: No - RENAL Hx Chronic Kidney Disease: No - ENDOCRINE/METABOLIC Hx Endocrine Disorders: No - HEMATOLOGICAL/ONCOLOGICAL Hx Human Immunodeficiency Virus (HIV): No - INTEGUMENTARY Hx Dermatological Problems: No - MUSCULOSKELETAL/RHEUMATOLOGICAL Hx Musculoskeletal Disorders: No - GASTROINTESTINAL Hx Gastrointestinal Disorders: No - GENITOURINARY/GYNECOLOGICAL Hx Sexually Transmitted Disorders: No - PSYCHIATRIC Hx Depression: Yes Hx Schizophrenia: Yes (schizoaffective) - SURGICAL HISTORY Hx Surgeries: No Other/Comment: myomectomy 4 months ago - ANESTHESIA Hx Anesthesia: Yes Hx Anesthesia Reactions: No Hx Malignant Hyperthermia: No Meds Allergies/Adverse Reactions: Allergies Allergy/AdvReac Type Severity Reaction Status Date / Time aripiprazole [From Abilify] Allergy RASH Verified 10/14/16 14:48 Physical Exam - Psychiatric Exam Psychiatric exam: Flat Affect Additional comments: Pt has remained internally preoccupied.pt is anxious but no agitation n oted .Alert orientedx3 .poor ionsight and poor judgement .still refusing voluntary adsmission.pt does not want any psych meds. - Expanded Psychiatric Exam Expanded Focused psych exam: Delusional, Flight of Ideas, Internal Stimuli, Loose Associations, Perseverating Results - Vital Signs Recent Vital Signs: Last Vital Signs Temp 98.3 F 02/13/17 09:28 Pulse 71 02/13/17 09:28 Resp 16 02/13/17 09:28 BP 127/49 L 02/13/17 09:28 Pulse Ox 99 02/13/17 11:29 - Labs Result Diagrams: 02/11/17 02:06 02/11/17 02:06 Assessment & Plan - Assessment and Plan (Free Text) Assessment: A/p; schizophrenis ,paranoid type Plan : contin ue 1;1 observation Will order prn meds ativan and haldol prn for agitation Pt will be transferred [place] [facility] when [place]
--- NOTE | 2017-02-13 15:07 | ED PDOC ---
- Laboratory Results Result Diagrams: 02/11/17 02:06 02/11/17 02:06 - ECG O2 Sat by Pulse Oximetry: 99 (RA) Pulse Ox Interpretation: Normal Medical Decision Making Medical Decision Making: Receiving sign out: Patient signed out to me by Dr. Castillo at 1500 pending [facility] [place]. Scribe Attestation: Documented by Crista Rojo acting as a scribe for Elda Appiah MD. Provider Attestation: All medical record entries made by the Scribe were at my direction and personally dictated by me. I have reviewed the chart and agree that the record accurately reflects my personal performance of the history, physical exam, medical decision making, and the department course for this patient. I have also personally directed, reviewed, and agree with the discharge instructions and disposition. Disposition - Clinical Impression Clinical Impression: Schizophrenia - POA Present On Arrival: None - Disposition Disposition: Transfer of Care Disposition Time: 15:00 Condition: STABLE Patient Signed Over To: Emanuel Oliva
--- NOTE | 2017-02-14 00:07 | ED PDOC ---
- Laboratory Results Result Diagrams: 02/11/17 02:06 02/11/17 02:06 - ECG O2 Sat by Pulse Oximetry: 99 (RA) Pulse Ox Interpretation: Normal Medical Decision Making Medical Decision Makin:00 Pt signed over pending [facility] bed availability. 07:00 Disposition Time: 7:00 Condition: Fair Scribe Attestation: Documented by Dianna Harris, acting as a scribe for Emanuel Oliva MD. Provider Scribe Attestation: All medical record entries made by the Scribe were at my direction and personally dictated by me. I have reviewed the chart and agree that the record accurately reflects my personal performance of the history, physical exam, medical decision making, and the department course for this patient. I have also personally directed, reviewed, and agree with the discharge instructions and disposition. Disposition - Clinical Impression Clinical Impression: Schizophrenia - POA Present On Arrival: None - Disposition Disposition: Transfer of Care Disposition Time: 00:00 Condition: FAIR Patient Signed Over To: Salma Patle Handoff Comments: pending [facility] bed availability
--- NOTE | 2017-02-14 07:24 | ED PDOC ---
- Laboratory Results Result Diagrams: 02/11/17 02:06 02/11/17 02:06 - ECG O2 Sat by Pulse Oximetry: 100 - Progress ED Course And Treament: 7:00AM Signed out from Dr. Oliva as medically cleared pending [facility] bed. Patient resting comfortably. Will continue to monitor Medical Decision Making Medical Decision Making: Carmen has been resting comfortably all day. She has been continually monitored, reevaluated by psych and medicated by psych. Will sign out to Dr. Bernard, P:[facility] bed Disposition - Clinical Impression Clinical Impression: Schizophrenia - POA Present On Arrival: None - Disposition Disposition: Hospitalized as Observation Patient Disposition Time: 17:00 Condition: FAIR
--- NOTE | 2017-02-14 13:45 | CP.PCM.CON ---
History of Present Illness - History of Present Illness History of Present Illness: Psychiatry Consult f/u note Patient is a poor historian CC: "I was wondering around" HPI: 41 year old female w/ h/o schizophrenia, recentinly hospitalized at [facility], brought in by brother presents to ED for a psychiatric evaluation, due to wandering the streets and bizarre behavior. Patient has been non-compliant with medications since discharge. She was screened for involuntary admission adn accepted. Patient denies all symptoms to ad writer including depression/ anxiety/hallucinations/delusions/paranoia/SI/HI. She was guarded on interview. +Seen to be internally preoccupied by staff PCP: None MSE: A + O x 3, calm, guarded, evasive, fair eye contact, mood "fine", affect- constricted, denies hallucinations/paranoia/delusions, but patient seems to be paranoid and internally preoccupied, no si/hi, insight/judgment poor Impression: 41 yo female w/ schizophrenia presents acutely decompensated in the context of non-compliance with medications, accepted for involuntary psychiatric admission, pending bed and transfer to [facility] -Continue 1:1 for safety -Haldol 5 mg PO and Cogentin 1 mg PO stat -Transfer to [facility] when bed is available Past Patient History - Past Social History Alcohol: None Drugs: Denies - CARDIAC Hx Hypertension: No - PULMONARY Hx Tuberculosis: No - NEUROLOGICAL Hx Seizures: No - HEENT Hx HEENT Problems: No - RENAL Hx Chronic Kidney Disease: No - ENDOCRINE/METABOLIC Hx Endocrine Disorders: No - HEMATOLOGICAL/ONCOLOGICAL Hx Human Immunodeficiency Virus (HIV): No - INTEGUMENTARY Hx Dermatological Problems: No - MUSCULOSKELETAL/RHEUMATOLOGICAL Hx Musculoskeletal Disorders: No - GASTROINTESTINAL Hx Gastrointestinal Disorders: No - GENITOURINARY/GYNECOLOGICAL Hx Sexually Transmitted Disorders: No - PSYCHIATRIC Hx Depression: Yes Hx Schizophrenia: Yes (schizoaffective) - SURGICAL HISTORY Hx Surgeries: No Other/Comment: myomectomy 4 months ago - ANESTHESIA Hx Anesthesia: Yes Hx Anesthesia Reactions: No Hx Malignant Hyperthermia: No Meds Allergies/Adverse Reactions: Allergies Allergy/AdvReac Type Severity Reaction Status Date / Time aripiprazole [From Abilify] Allergy RASH Verified 10/14/16 14:48 - Medications Medications: Current Medications Benztropine Mesylate (Cogentin) 1 mg PO STAT STA Stop: 02/14/17 13:36 Haloperidol (Haldol) 5 mg PO STAT STA Stop: 02/14/17 13:36 Lorazepam (Ativan) 1 mg PO TID PRN PRN Reason: Agitation Results - Vital Signs Recent Vital Signs: Last Vital Signs Temp 98.2 F 02/14/17 07:45 Pulse 82 02/14/17 07:45 Resp 16 02/14/17 07:45 BP 128/74 02/14/17 07:45 Pulse Ox 100 02/14/17 07:45 - Labs Result Diagrams: 02/11/17 02:06 02/11/17 02:06
--- NOTE | 2017-02-14 17:26 | ED PDOC ---
- Laboratory Results Result Diagrams: 02/11/17 02:06 02/11/17 02:06 - ECG ECG: Positive for: Interpreted By Me ECG Rhythm: Positive for: Normal QRS, Normal ST Segment, Sinus Rhythm O2 Sat by Pulse Oximetry: 100 (RA) Pulse Ox Interpretation: Normal - Radiology X-Ray: Interpreted by Me X-Ray Interpretation: No Acute Disease Medical Decision Making Medical Decision Making: Receiving sign out: Patient signed out to me by Dr. Patel at 1700 pending [facility] [place]. Scribe Attestation: Documented by Crista Rojo acting as a scribe for Maribell Kirk MD. Provider Attestation: All medical record entries made by the Scribe were at my direction and personally dictated by me. I have reviewed the chart and agree that the record accurately reflects my personal performance of the history, physical exam, medical decision making, and the department course for this patient. I have also personally directed, reviewed, and agree with the discharge instructions and disposition. Disposition - Clinical Impression Clinical Impression: Schizophrenia - POA Present On Arrival: None - Disposition Disposition: Transfer of Care Disposition Time: 00:00 Condition: STABLE Patient Signed Over To: Emanuel Oliva Handoff Comments: Pending bed availability in [facility] Progress Note - Review of Symptoms Events since last encounter: Time: 1899 Patient resting comfortably, no acute distress. Time: 2099 Patient resting, no acute distress. Time: 2141 -- Chest x-ray -- EKG
[2017-02-14 22:39] VITALS: RESP 17
--- NOTE | 2017-02-15 00:22 | ED PDOC ---
- Laboratory Results Result Diagrams: 02/11/17 02:06 02/11/17 02:06 - ECG O2 Sat by Pulse Oximetry: 100 (RA) Pulse Ox Interpretation: Normal Medical Decision Making Medical Decision Making: Receiving sign out: Patient signed out to me by Dr. Kirk at 00:00 pending bed availability at [facility]. At00:[address] bed available [address] [facility]; Patient transferred via ambulance [facility] to [facility] at 1:30 Scribe Attestation: Documented by Crista Rojo acting as a scribe for Emanuel Oliva MD. Provider Attestation: All medical record entries made by the Scribe were at my direction and personally dictated by me. I have reviewed the chart and agree that the record accurately reflects my personal performance of the history, physical exam, medical decision making, and the department course for this patient. I have also personally directed, reviewed, and agree with the discharge instructions and disposition. Disposition - Clinical Impression Clinical Impression: Schizophrenia - POA Present On Arrival: None - Disposition Disposition: Other Institution Disposition Time: 02:30 Condition: FAIR Progress Note - Review of Symptoms Events since last encounter: Time: [address] [facility] with available bed, accepting provider : Dr. Santos Patient stable upon transfer.
[2017-02-15 01:11] VITALS: BP 120/68; PULSE 70; TEMP 98.2
--- NOTE | 2017-02-15 09:40 | RAD ---
HISTORY: psych transfer COMPARISON: No prior. FINDINGS: LUNGS: The lungs are clear. PLEURA: No significant pleural effusion identified, no pneumothorax apparent. CARDIOVASCULAR: Normal. OSSEOUS STRUCTURES: No significant abnormalities. VISUALIZED UPPER ABDOMEN: Normal. OTHER FINDINGS: None. IMPRESSION: No acute findings.
--- NOTE | 2017-02-15 11:22 | CARD ---
APPROVED REPORT EKG Measurement Heart [id number] <Conclusion> Normal sinus rhythm Normal ECG
[2017-02-17 09:28] VITALS: O2SAT 99
== END 2017-02-15 01:40 ==
LOC: H.ER 01:19 → H.EROBSV 02:30
PROVIDERS: ADMIT Emergency Medicine; ATTEND Emergency Medicine
DX: F20.0 Paranoid schizophrenia (principal); E11.9 Type 2 diabetes mellitus without complications; Z91.14 Patient's other noncompliance with medication regimen
CPT/HCPCS: 71010; 80053; 80320; 80324; 80345; 80346; 80349; 80353; 80358; 80361; 81003; 81025; 83992; 85025; 93005; 99285; G0378

== ENCOUNTER 2017-02-20 07:15 | Inpatient (IN) | payer MEDICAID ==
[2017-02-20 07:30] VITALS: BMI 25.9
--- NOTE | 2017-02-20 07:35 | ED PDOC ---
HPI: Psych/Substance Abuse Time Seen by Provider: 02/20/17 07:23 Chief Complaint (Nursing): Psychiatric Evaluation Chief Complaint (Provider): Psych evaluation History Per: Patient History/Exam Limitations: no limitations Onset/Duration Of Symptoms: Hrs Additional Complaint(s): Patient is a 42 y/o female with a past medical history of paranoid schizophrenia who was brought to the emergency department by her brother and requesting a psych evaluation after being found wandering out of her place of residence. Notes that she was discharged last week after being admitted for paranoid schizophrenia. Denies suicidal ideation, homicidal ideation, and visual or auditory hallucinations. PCP: none provided. Past Medical History Reviewed: Historical Data, Nursing Documentation, Vital Signs - Medical History PMH: Depression, Schizophrenia (schizoaffective) Denies: Diabetes, Hepatitis, HIV, HTN, Chronic Kidney Disease, Seizures, Sexually Transmitted Disease - Surgical History Other surgeries: myomectomy - Family History Family History: States: Diabetes - Living Arrangements Living Arrangements: With Family (brother) - Social History Current smoker - smoking cessation education provided: No Ex-Smoker (has not smoked in the last 12 months): No Alcohol: None Drugs: Denies - Immunization History Hx Tetanus Toxoid Vaccination: No Hx Influenza Vaccination: No Hx Pneumococcal Vaccination: No - Home Medications Home Medications: Ambulatory Orders Medication Instructions Recorded No Known Home Med 01/04/17 - Allergies Allergies/Adverse Reactions: Allergies Allergy/AdvReac Type Severity Reaction Status Date / Time aripiprazole [From Abilify] Allergy RASH Verified 10/14/16 14:48 Review of Systems ROS Statement: Except As Marked, All Systems Reviewed And Found Negative Psych: Positive for: Other (behavorial disturbance). Negative for: Suicidal ideation (homicidal ideation, visual or auditory hallucinations) Physical Exam - Reviewed Nursing Documentation Reviewed: Yes Vital Signs Reviewed: Yes - Physical Exam Appears: Positive for: Well, Non-toxic, No Acute Distress Head Exam: Positive for: ATRAUMATIC, NORMAL INSPECTION, NORMOCEPHALIC Skin: Positive for: Normal Color, Warm, Dry Eye Exam: Positive for: EOMI, Normal appearance, PERRL ENT: Positive for: Normal ENT Inspection Neck: Positive for: Normal, Painless ROM, Supple Cardiovascular/Chest: Positive for: Regular Rate, Rhythm. Negative for: Murmur Respiratory: Positive for: Normal Breath Sounds. Negative for: Accessory Muscle Use, Respiratory Distress Gastrointestinal/Abdominal: Positive for: Normal Exam, Soft. Negative for: Tenderness Back: Positive for: Normal Inspection Extremity: Positive for: Normal ROM. Negative for: Pedal Edema Neurologic/Psych: Positive for: Alert, Oriented (x3). Negative for: Motor/ Sensory Deficits Medical Decision Making Medical Decision Making: Time: 07:32 Initial impression: Psych evaluation Initial plan: Alcohol Serum Stat Urine Drug Screening ED Urine Dipstick ED Urine Reevaluation Scribe Attestation: Documented by Zeina Watkins, acting as a scribe for Hugo Curtis MD. Medically stable for psychiatric admission Provider Scribe Attestation: All medical record entries made by the Scribe were at my direction and personally dictated by me. I have reviewed the chart and agree that the record accurately reflects my personal performance of the history, physical exam, medical decision making, and the department course for this patient. I have also personally directed, reviewed, and agree with the discharge instructions and disposition. Disposition - Clinical Impression Clinical Impression: Schizophrenia - Patient ED Disposition Is Patient to be Admitted: Yes - Disposition Disposition Time: 10:35 Condition: FAIR Forms: Med fusion (Slovenian) - Pt Status Changed To: Hospital Disposition Of: Inpatient - Admit Certification Admit to Inpatient:: After my assessment, the patient will require hospitalization for at least two midnights. This is because of the severity of symptoms shown, intensity of services needed, and/or the medical risk in this patient being treated as an outpatient. - POA Present On Arrival: None
--- NOTE | 2017-02-20 16:07 | PCM.BM ---
<JakiJennifer - Last Filed: 02/20/17 16:10> Treatment Plan Problems - Problems identified on initial assessmt Problem 1 Date Initiated: 02/20/17 Time Initiated: 16:06 Assessment reference: NA Treatment assets and liabiliti Patient Assests: cooperative, ADL independent, physically healthy, negotiates basic needs, cognitively intact Patient Liabilities: financial problems - Milieu Protocol Maintain good personal hygiene: daily Encourage regular showers, daily Remind patient to perform daily oral care, daily Assist patient to perform ADL's Conduct patient checks and document Observation sheet: Q15 minutes Maintain personal safety: every shift Educate patient to report safety concerns to staff, every shift Monitor environment for contraband/sharps Medication safety: Monitor for expected outcome, potential side effects: every shift, Assess barriers to learning: every shift, Assess readiness for medication education: every shift <Arnav Santos - Last Filed: 02/23/17 10:38> Family Contact Family contact: Patient agrees to contact, Family has been contacted by patient , Telephone contact initiated by staff Family contact name: Sumeet Estrella (Father) Family contacted how many times per week?: 3 Family contact comment: Pt's father reported that he wanted pt transferred to a Hospital in [place] where he resides. Sumeet reported that pt has been arrested at least twice for shoplifting and does not follow up with legal repercussions. Vat Washer spoke with pt's father regarding possibility of hiring a railroad baggage porter to obtain guardianship of pt due to pt's lack of insight. Pt has rescinded her 48 hour notice and so she will be hospitalized for at least another 48 hours. - Goals for Treatment Patient goals for treatment: Gain more energy and more organized thoughts. Discharge/Continuing Care - Education Needs Education Needs: Patient Medication, Patient Coping Skills, Patient Personal Hygiene/Grooming - Discharge Discharge Criteria: Tolerates medication w/o severe side effects, Free of paranoid thoughts Discharge to:: Home - Treatment Team Participation Discussed with Family/SO: Yes Was Patient/Family/SO present at Treatment Team Meeting: Yes
--- NOTE | 2017-02-20 17:03 | PCM.PSYCH ---
Initial Psychiatric Evaluation - Initial Psychiatric Evaluation Chief Complaint (in patient's own words): i went out I was wandering over night for 24 hours I got home and my father brought me here Patient's Reaction to Hospitalization: pt is verbally agreeable to remain inpt but is deferring medications History of Present Illness and Precipitating Events: pt reports was [facility] after being involuntary for history of schizphrenia. pt reports that does not take medications when not in the hospital-admits she has illness but does not think people always having to take medications. admits that in the past has taken risperdal and seroquel but does not recall doses. Current Medications: defers Past Psychiatric History - Past Psychiatric History Prior Professional Help: multiple admission in [facility] both voluntary and involuntary Prior Psychiatric Treatment: admits that this has been approx. 11 times in her life History of ETOH/Drug Use: denies History of Family Illness: defers Pertinent Medical Hx (Current Medical&Sleep Prob, Allergies): Allergies Allergy/AdvReac Type Severity Reaction Status Date / Time aripiprazole [From Abilify] Allergy RASH Verified 10/14/16 14:48 No Known Home Med 01/04/17 Review of Systems - Psychiatric Psychiatric: Paranoia Additional comments: commentary voices non command Mental Status Examination - Personal Presentation Personal Presentation: Looks stated age - Affect Affect: Constricted - Motor Activity Motor Activity: Psychomotor Retardation - Reliability in Providing Information Reliability in Providing Information: Other Additional comments: defers details - Speech Additional comments: soft underproductive minimal with prompting - Mood Additional comments: OKAY - Formal Thought Process Formal Thought Process: Hallucinations, Paranoia - Hallucinations/Delusions Hallucinations: Auditory - Obsessions/Compulsions Description of Obsession/Compulsion: defers - Cognitive Functions Orientation: Person, Place Sensorium: Other (contricted somewhat drowsy or appearance there of ) Attention/Concentration: Easily distracted Judgement: Imparied, as evidence by: Poor judgement (non adherence with treatment and follow up), Imparied, as evidence by: Lack of insight into illness - Risk Risk: Diminished functioning - Strength & Assets Inventory Additional comments: voluntary but deferring medications - Limitations Additional comments: non adherence, frequent exacerbations, voluntary and involuntary admission DSM 5 DX - DSM 5 DSM 5 Diagnosis: schizophrenia of paranoid type non adherence with medical treatment - Recommended/Plan of Treatment Treatment Recommendations and Plan of Treatment: admission per attending vital signs and clinical observation per protocol and per status prns per protocol/unit hospitalist risperdal m tab 2 mg po hs screen pt is deferring medications, is psychotic
[2017-02-20] MEDS ORDERED: DiphenhydrAMINE 50 mg/ml Inj IM PRN (20:39)
[2017-02-20] MEDS ORDERED: Magnesium Hydroxide Susp 30 ml UD PO PRN (20:39)
[2017-02-20] MEDS ORDERED: Alum-Mag Hydrox-Simethicone Susp (30 mL) PO PRN (20:39)
[2017-02-20] MEDS: Risperidone M TAB 2 MG PO SCH (21:08)
[2017-02-21 07:59] LABS: T4 8.46 ug/dl (5.5-11.0)
[2017-02-21 08:11] LABS: THYROID STIMULATING HORMONE 0.34 mIU/ML (0.46-4.68)
[2017-02-21] MEDS: Risperidone M TAB 2 MG PO SCH (08:53)
--- NOTE | 2017-02-21 09:40 | PCM.PYCHPN ---
Psychiatric Progress Note - Psychiatric Progress Note Patient seen today, length of contact: discussed with team Patient Chief Complaint: they say i was wandering in the community Problems Identified/Issues Discussed: pt well known to this treatment team. she is denying that she has a mental illness: "am in in any position to question my diagnosis" and is agreeing to take medications despite stating that she does not feel she has a psychotic illness. she denies side effects from her first dose of medication. this justowriter operator encouraged pt to continue treatment and to possibly take an long acting injectable medication. pt states "i will have to see about that" DSM 5 Symptoms Update: isolates in room, poorly groomed, internally preoccupied. Medication Change: No Medical Record Reviewed: Yes Mental Status Examination - Cognitive Function Orientation: Person, Place Memory: Intact Attention: WNL Concentration: WNL Association: Loose Fund of Knowledge: WNL Decription of patient's judgement and insights: superficial insight - Mood Mood: Neutral - Affect Affect: Constricted - Speech Speech: Soft - Formal Thought Process Formal Thought Process: Hallucinations, Paranoia, Loosening of associations Psychotic Thoughts and Behaviors: pt with grossly disorganized thoughts/behaviors. - Suicidal Ideation Suicidal Ideation: No - Homicidal Ideation Homicidal Ideation: No Goal/Treatment Plan - Goal/Treatment Plan Need for Continued Stay: Remain at risks for inpatient hospitalization, Severe functional impairment Progress Toward Problem(s) and Goals/Treatment Plan: schizophrenia, paranoid type screening was ordered this weekend as pt is repeatedly hospitalized for her psychotic symptoms and is resistant to medications and treatment. she was just discharged from [facility] the day prior to this admission. she was refusing medications until today. she is at risk for continued decline in functioning, and for rehospitalization and is a risk to self secondary to her disorganized behaviors. will continue with plan to screen patient Estimated Date of D/C: 02/23/17
--- NOTE | 2017-02-21 11:05 | CP.PCM.CON ---
History of Present Illness - History of Present Illness History of Present Illness: 42 yo female with history of schizophrenia admitted to psyche unit because she was not taking her medications. Review of Systems - Review of Systems All systems: reviewed and no additional remarkable complaints except (aside from those mentioned above, 12 point system review were negative by me) Past Patient History - Tetanus Immunizations Tetanus Immunization: Unknown - Past Social History Smoking Status: Never Smoked Alcohol: None Drugs: Denies - CARDIAC Hx Cardiac Disorders: No - PULMONARY Hx Respiratory Disorders: No Hx Tuberculosis: No - NEUROLOGICAL Hx Neurological Disorder: No HX Cerebrovascular Accident: No Hx Seizures: No - HEENT Hx HEENT Problems: No - RENAL Hx Chronic Kidney Disease: No Hx Kidney Stones: No - ENDOCRINE/METABOLIC Hx Endocrine Disorders: No - HEMATOLOGICAL/ONCOLOGICAL Hx Blood Disorders: No Hx Cancer: No Hx Human Immunodeficiency Virus (HIV): No - INTEGUMENTARY Hx Dermatological Problems: No - MUSCULOSKELETAL/RHEUMATOLOGICAL Hx Musculoskeletal Disorders: No - GASTROINTESTINAL Hx Gastrointestinal Disorders: No - GENITOURINARY/GYNECOLOGICAL Hx Genitourinary Disorders: No Hx Sexually Transmitted Disorders: No - PSYCHIATRIC Hx Depression: Yes Hx Physical Abuse: No Hx Sexual Abuse: No Hx Substance Use: No - SURGICAL HISTORY Hx Surgeries: No Other/Comment: myomectomy 4 months ago - ANESTHESIA Hx Anesthesia: Yes Hx Anesthesia Reactions: No Hx Malignant Hyperthermia: No Meds Allergies/Adverse Reactions: Allergies Allergy/AdvReac Type Severity Reaction Status Date / Time aripiprazole [From [facility]] Allergy RASH Verified 10/14/16 14:48 - Medications Medications: Current Medications Acetaminophen (Tylenol 325mg Tab) 650 mg PO Q4 PRN PRN Reason: pain level 1-7 Al Hydrox/Mg Hydrox/Simethicone (Maalox Plus 30 Ml) 30 ml PO Q4 PRN PRN Reason: Dyspepsia Diphenhydramine HCl (Benadryl) 50 mg IM Q6 PRN PRN Reason: Extrapyramidal S/S Unable PO Diphenhydramine HCl (Benadryl) 50 mg PO Q6 PRN PRN Reason: Extrapyramidal Symptoms Haloperidol (Haldol) 5 mg PO Q4 PRN PRN Reason: Agitation Haloperidol Lactate (Haldol) 5 mg IM Q4 PRN PRN Reason: Agitation, Unable to Take PO Lorazepam (Ativan) 2 mg IM Q4 PRN PRN Reason: Anxiety/Agitation,Unable PO Lorazepam (Ativan) 2 mg PO Q4 PRN PRN Reason: Anxiety/Agitation Magnesium Hydroxide (Milk Of Magnesia) 30 ml PO HS PRN PRN Reason: Constipation Risperidone (Risperdal M-Tab) 2 mg PO DAILY CARLOS Last Admin: 02/21/17 08:53 Dose: 2 mg Physical Exam - Constitutional Appears: No Acute Distress - Head Exam Head Exam: ATRAUMATIC - Eye Exam Eye Exam: absent: Scleral icterus - ENT Exam ENT Exam: Mucous Membranes Moist - Neck Exam Neck exam: Negative for: Meningismus - Respiratory Exam Respiratory Exam: absent: Rhonchi, Wheezes, Respiratory Distress - Cardiovascular Exam Cardiovascular Exam: REGULAR RHYTHM, +S1, +S2 - GI/Abdominal Exam GI & Abdominal Exam: Soft. absent: Tenderness - Rectal Exam Rectal Exam: Deferred - Extremities Exam Extremities exam: Negative for: pedal edema - Back Exam Back exam: NORMAL INSPECTION - Neurological Exam Neurological exam: Alert, Oriented x3 - Psychiatric Exam Psychiatric exam: Flat Affect, Normal Affect - Skin Skin Exam: Dry, Intact Results - Vital Signs Recent Vital Signs: Last Vital Signs Temp 97 F L 02/20/17 12:21 Pulse 78 02/20/17 12:21 Resp 18 02/20/17 15:35 BP 126/78 02/20/17 12:21 Pulse Ox 98 02/20/17 11:00 - Labs Labs: Laboratory Results - last 24 hr 02/21/17 07:15 Triglycerides 103 D Cholesterol 150 LDL Cholesterol Direct 78 HDL Cholesterol 40 Thyroxine (T4) 8.46 TSH 3rd Generation 0.34 L Assessment & Plan (1) Schizophrenia Status: Acute Comment: psyche is managing
[2017-02-22] MEDS: Risperidone M TAB 2 MG PO SCH (09:33)
--- NOTE | 2017-02-22 19:05 | PCM.PYCHPN ---
Psychiatric Progress Note - Psychiatric Progress Note Patient seen today, length of contact: chart reviewed, case discussed with team Patient Chief Complaint: I am doin ok there is nothing wrong with me though i went out I was wandering over night for 24 hours I got home and my father brought me here Problems Identified/Issues Discussed: alteration in coping alteration in cognition Medical Problems: per chart Diagnostic Results: per psychiatry per medicine per nursing per social work DSM 5 Symptoms Update: alteration in cognition/thought process Medication Change: No Medical Record Reviewed: Yes Consults ordered or reviewed: pt being seen by hospitalist Mental Status Examination - Cognitive Function Orientation: Person, Place Memory: Intact Attention: WNL Concentration: WNL Association: Loose Fund of Knowledge: WNL Decription of patient's judgement and insights: impaired has been taking medications-pt was screened by [facility] denied - Mood Mood: Neutral - Affect Affect: Constricted - Speech Speech: Soft - Formal Thought Process Formal Thought Process: Hallucinations, Paranoia, Loosening of associations - Suicidal Ideation Suicidal Ideation: No - Homicidal Ideation Homicidal Ideation: No Goal/Treatment Plan - Goal/Treatment Plan Need for Continued Stay: Remain at risks for inpatient hospitalization, Severe functional impairment Progress Toward Problem(s) and Goals/Treatment Plan: inpt milieu vital signs and clinical observation per protocol and per status prns per protocol/unit hospitalist following pt adust meds per status team may re screen pt per clinical status Estimated Date of D/C: 02/23/17 - Smoking Cessation Smoking Cessation Initiated: No Reason for not providing: deferred
[2017-02-23] MEDS: Risperidone M TAB 2 MG PO SCH (08:54)
--- NOTE | 2017-02-23 10:04 | PCM.PYCHPN ---
Psychiatric Progress Note - Psychiatric Progress Note Patient seen today, length of contact: discussed with team Patient Chief Complaint: i guess i will stay Problems Identified/Issues Discussed: pt taking medications. she is isolating in room. she retracted her 48 hour notice. she is willing to continue to treatment, but continues to deny that she has any thing beside depression. Medication Change: No Medical Record Reviewed: Yes Mental Status Examination - Cognitive Function Orientation: Person, Place Memory: Intact Attention: WNL Concentration: WNL Association: Loose Fund of Knowledge: WNL Decription of patient's judgement and insights: poor i - Mood Mood: Neutral - Affect Affect: Constricted - Speech Speech: Soft - Formal Thought Process Formal Thought Process: Hallucinations, Paranoia, Loosening of associations - Suicidal Ideation Suicidal Ideation: No - Homicidal Ideation Homicidal Ideation: No Goal/Treatment Plan - Goal/Treatment Plan Need for Continued Stay: Remain at risks for inpatient hospitalization, Severe functional impairment Progress Toward Problem(s) and Goals/Treatment Plan: schizophrenia, paranoid type continue risperdal and increase 1mg in the hs and 2mg during the day encourage participation in groups disposition planning Estimated Date of D/C: 02/23/17
[2017-02-23] MEDS: Risperidone M tab 1 MG PO SCH (21:35)
--- NOTE | 2017-02-24 08:41 | PCM.PYCHPN ---
Psychiatric Progress Note - Psychiatric Progress Note Patient seen today, length of contact: discussed with team Patient Chief Complaint: i am okay Problems Identified/Issues Discussed: pt denies any side effects with her medications. she is adherent to taking risperdal. she reports good sleep. she is still isolating from peers and somewhat evasive and superficially agreeable. Medication Change: No Medical Record Reviewed: Yes Mental Status Examination - Cognitive Function Orientation: Person, Place Memory: Intact Attention: WNL Concentration: WNL Association: Loose Fund of Knowledge: WNL Decription of patient's judgement and insights: superficial insight - Mood Mood: Neutral - Affect Affect: Blunted - Speech Speech: Soft - Formal Thought Process Formal Thought Process: Paranoia, Loosening of associations, Other (guarded and evasive) - Suicidal Ideation Suicidal Ideation: No - Homicidal Ideation Homicidal Ideation: No Goal/Treatment Plan - Goal/Treatment Plan Need for Continued Stay: Remain at risks for inpatient hospitalization, Severe functional impairment Progress Toward Problem(s) and Goals/Treatment Plan: schizophrenia, paranoid type continue risperdal at 1mg in the hs and 2mg during the day- will try to encourage injectable meds encourage participation in groups disposition planning Estimated Date of D/C: 03/02/17
[2017-02-24] MEDS: Risperidone M TAB 2 MG PO SCH (09:09)
[2017-02-24 17:43] VITALS: O2SAT 100
[2017-02-24] MEDS: Risperidone M tab 1 MG PO SCH (22:14)
[2017-02-25] MEDS: Risperidone M TAB 2 MG PO SCH ×2 (09:18→21:55)
--- NOTE | 2017-02-25 10:16 | PCM.PYCHPN ---
Psychiatric Progress Note - Psychiatric Progress Note Patient seen today, length of contact: discussed with team Patient Chief Complaint: i feel okay Problems Identified/Issues Discussed: pt continues to be evasive. she is guarded. she denies side effects. pt isolates in room. doesn't interact with peers. Medication Change: Yes (increase risperdal) Medical Record Reviewed: Yes Mental Status Examination - Cognitive Function Orientation: Person, Place Memory: Intact Attention: WNL Concentration: WNL Association: Loose Fund of Knowledge: WNL Decription of patient's judgement and insights: superficial insight - Mood Mood: Neutral - Affect Affect: Blunted - Speech Speech: Soft - Formal Thought Process Formal Thought Process: Paranoia, Loosening of associations, Other (guarded and evasive) Psychotic Thoughts and Behaviors: internally preoccupied, paranoid - Suicidal Ideation Suicidal Ideation: No - Homicidal Ideation Homicidal Ideation: No Goal/Treatment Plan - Goal/Treatment Plan Need for Continued Stay: Remain at risks for inpatient hospitalization, Severe functional impairment Progress Toward Problem(s) and Goals/Treatment Plan: schizophrenia, paranoid type increase risperdal to 2mg in the hs and 2mg during the day- will try to encourage injectable meds encourage participation in groups disposition planning Estimated Date of D/C: 03/02/17
--- NOTE | 2017-02-25 22:20 | CP.PCM.PCO ---
Physician Communication Note - Physician Communication Note Physician Communication Note: Reddness in the left eye.
[2017-02-26] MEDS: Naphazoline/Pheniramine Opht SOLN OU SCH ×4 (09:29→21:30)
[2017-02-26] MEDS: Risperidone M TAB 2 MG PO SCH ×2 (09:29→21:31)
--- NOTE | 2017-02-26 10:03 | PCM.PYCHPN ---
Psychiatric Progress Note - Psychiatric Progress Note Patient seen today, length of contact: discussed with team Patient Chief Complaint: i feel better Problems Identified/Issues Discussed: pt less evasive. more visible in the milieu. she is more agreeable to to getting an injectable version of risperdal. she is denying medication side effects. Medication Change: No ( ) Medical Record Reviewed: Yes Mental Status Examination - Cognitive Function Orientation: Person, Place Memory: Intact Attention: WNL Concentration: WNL Association: Loose Fund of Knowledge: WNL Decription of patient's judgement and insights: fair insight - Mood Mood: Neutral - Affect Affect: Blunted - Speech Speech: Soft - Formal Thought Process Formal Thought Process: Paranoia, Loosening of associations, Other (guarded and evasive) Psychotic Thoughts and Behaviors: internally preoccupied, paranoid - Suicidal Ideation Suicidal Ideation: No - Homicidal Ideation Homicidal Ideation: No Goal/Treatment Plan - Goal/Treatment Plan Need for Continued Stay: Remain at risks for inpatient hospitalization, Severe functional impairment Progress Toward Problem(s) and Goals/Treatment Plan: schizophrenia, paranoid type continue risperdal to 2mg in the hs and 2mg during the day- will consider starting an injectable tuesday encourage participation in groups disposition planning Estimated Date of D/C: 03/02/17
[2017-02-27] MEDS: Risperidone M TAB 2 MG PO SCH ×2 (09:16→21:02)
[2017-02-27] MEDS: Naphazoline/Pheniramine Opht SOLN OU SCH ×4 (09:16→23:07)
--- NOTE | 2017-02-27 10:49 | PCM.PYCHPN ---
Psychiatric Progress Note - Psychiatric Progress Note Patient seen today, length of contact: discussed with team Patient Chief Complaint: i wont take the shot Problems Identified/Issues Discussed: pt states she will not take the invega sustenna. she is more visible in the milieu and her speech is more spontaneous. she denies side effects from medications. Medication Change: No ( ) Medical Record Reviewed: Yes Mental Status Examination - Cognitive Function Orientation: Person, Place Memory: Intact Attention: WNL Concentration: WNL Association: Loose Fund of Knowledge: WNL Decription of patient's judgement and insights: fair insight - Mood Mood: Neutral - Affect Affect: Blunted - Speech Speech: Soft - Formal Thought Process Formal Thought Process: Paranoia, Loosening of associations, Other (guarded and evasive) Psychotic Thoughts and Behaviors: internally preoccupied, paranoid - Suicidal Ideation Suicidal Ideation: No - Homicidal Ideation Homicidal Ideation: No Goal/Treatment Plan - Goal/Treatment Plan Need for Continued Stay: Remain at risks for inpatient hospitalization, Severe functional impairment Progress Toward Problem(s) and Goals/Treatment Plan: schizophrenia, paranoid type continue risperdal to 2mg in the hs and 2mg during the day- pt refusing to take injectable. encourage participation in groups disposition planning Estimated Date of D/C: 03/02/17
[2017-02-28] MEDS: Risperidone M TAB 2 MG PO SCH ×2 (09:27→21:01)
--- NOTE | 2017-02-28 11:00 | PCM.PYCHPN ---
Psychiatric Progress Note - Psychiatric Progress Note Patient seen today, length of contact: discussed with team Patient Chief Complaint: i am fine Problems Identified/Issues Discussed: pt again declines to take the invega sustenna injection. she is evasive and minimizing her symptoms, but appears less anxious and internally preoccupied. Medication Change: No ( ) Medical Record Reviewed: Yes Mental Status Examination - Cognitive Function Orientation: Person, Place Memory: Intact Attention: WNL Concentration: WNL Association: Loose Fund of Knowledge: WNL Decription of patient's judgement and insights: fair insight - Mood Mood: Neutral - Affect Affect: Blunted - Speech Speech: Soft - Formal Thought Process Formal Thought Process: Paranoia, Loosening of associations, Other (guarded and evasive) Psychotic Thoughts and Behaviors: internally preoccupied, paranoid - Suicidal Ideation Suicidal Ideation: No - Homicidal Ideation Homicidal Ideation: No Goal/Treatment Plan - Goal/Treatment Plan Need for Continued Stay: Remain at risks for inpatient hospitalization, Severe functional impairment Progress Toward Problem(s) and Goals/Treatment Plan: schizophrenia, paranoid type continue risperdal to 2mg in the hs and 2mg during the day- pt still refusing to take injectable. encourage participation in groups disposition planning Estimated Date of D/C: 03/02/17
[2017-02-28] MEDS: Naphazoline/Pheniramine Opht SOLN OU SCH ×3 (13:15→21:33)
--- NOTE | 2017-03-01 09:15 | PCM.PYCHDC ---
Mental Status Examination - Mental Status Examination Orientation: Person, Place, Situation, Time Memory: Intact Mood: Neutral Affect: Blunted Speech: Soft Attention: Poor Concentration: WNL Association: Loose Fund of Knowledge: WNL Formal Thought Process: Delusions, Paranoia, Loosening of associations Description of patient's judgement and insight: questionable insight Psychotic Thoughts and Behaviors: internally preoccupied, paranoid, loosening of associations Suicidal Ideation: No Current Homicidal Ideation?: No Plan: pt denies any auditory/visual hallucinations Discharge Summary - Discharge Note Reason for Hospitalization: psychosis, non-adherence with treatment Psychiatric History (includes Medical, Family, Personal Hx): histroy of psychotic symtoms, bizarre behavior, non-adherence to treatment Consultations:: List each consultation separately and include: 1. Reason for request. 2. Findings. 3. Follow-up Consultations: seen by hospitalist Summary of Hospital Course include:: 1. Description of specific treatment plan utilized for patients during their course of treatmen. 2. Summarize the time- course for resolution of acute symptoms and/or regressed behaviors. 3. Describe issues identified and worked on during hospitalization. 4. Describe medication utilized. 5. Describe medical problems identified and treated. 6. Reassessment of suicide risk Summary of Hospital Course: pt was admitted to [facility] and oriented to the unit. pt was placed on routine safety protocols. pt was started on risperdal and the dose titrated up to 2mg bid. she was encouraged to participate in groups, but tended to isolate in her room. she was initially agreeing to take an injectable form of risperdal that would help her with adherence to therapy. however, the patient refused to allow the initiation of invega sustenna. the patient signed a 48 hour notice of her intention to leave the hospital. she was not exhibiting behavior that would place her at an immediate danger to self/others and had been screened earlier in the admission. she was discharged with a prescription for 2 weeks with one refill of risperdal. - Final Diagnosis (DSM 5) Condition upon Discharge: FAIR DSM 5: schziophrenia, paranoid type Disposition: HOME/ ROUTINE Follow-up Treatment Plan: follow up with aftercare as directed take medications as prescribed do not use alcohol, tobacco or other illicit substances call 911 if any suicidal or homicidal thoughts Prescriptions/Medication Reconciliation: Risperidone [Risperdal] 2 mg PO BID #30 tablet - Smoking Cessation Smoking Cessation Medication prescribed: No Reason for not providing: declines - Antipsychotic Medications Pt discharged on 2 or more routine antipsychotic medications: No
[2017-03-01] MEDS: Risperidone M TAB 2 MG PO SCH ×2 (09:45→21:13)
[2017-03-01] MEDS: Naphazoline/Pheniramine Opht SOLN OU SCH ×5 (09:47→21:13)
--- NOTE | 2017-03-01 10:39 | PCM.PYCHPN ---
Psychiatric Progress Note - Psychiatric Progress Note Patient seen today, length of contact: discussed with team Patient Chief Complaint: i am okay Problems Identified/Issues Discussed: pt has signed 48 hour notice. will change discharge to tomorrow as family will come at that time to [facility] patient and this will improve chances she will continue to receive treatment. Medication Change: No ( ) Medical Record Reviewed: Yes Mental Status Examination - Cognitive Function Orientation: Person, Place, Situation, Time Memory: Intact Attention: Poor Concentration: WNL Association: Loose Fund of Knowledge: WNL Decription of patient's judgement and insights: questionable insight - Mood Mood: Neutral - Affect Affect: Blunted - Speech Speech: Soft - Formal Thought Process Formal Thought Process: Delusions, Paranoia, Loosening of associations Psychotic Thoughts and Behaviors: internally preoccupied, paranoid, loosening of associations - Suicidal Ideation Suicidal Ideation: No - Homicidal Ideation Homicidal Ideation: No Goal/Treatment Plan - Goal/Treatment Plan Need for Continued Stay: Remain at risks for inpatient hospitalization, Severe functional impairment Progress Toward Problem(s) and Goals/Treatment Plan: schizophrenia needs further treatment will discharge tomorrow Estimated Date of D/C: 03/02/17
[2017-03-02 09:08] VITALS: BP 112/63; PULSE 80; RESP 18; TEMP 98.4
[2017-03-02] MEDS: Risperidone M TAB 2 MG PO SCH (09:20)
[2017-03-02] MEDS: Naphazoline/Pheniramine Opht SOLN OU SCH ×2 (09:22)
--- NOTE | 2017-03-02 09:25 | PCM.PYCHDC ---
Mental Status Examination - Mental Status Examination Orientation: Person, Place, Situation, Time Memory: Intact Mood: Anxious (regarding discharge) Affect: Constricted Speech: Soft Attention: WNL Concentration: WNL Association: WNL Fund of Knowledge: WNL Formal Thought Process: Paranoia Description of patient's judgement and insight: questionable insight Psychotic Thoughts and Behaviors: internally preoccupied, paranoid, loosening of association Suicidal Ideation: No Current Homicidal Ideation?: No Plan: denies suicidal or homicidal thoughts Discharge Summary - Discharge Note Reason for Hospitalization: psychosis, non-adherence with treatment Psychiatric History (includes Medical, Family, Personal Hx): histroy of psychotic symtoms, bizarre behavior, non-adherence to treatment Consultations:: List each consultation separately and include: 1. Reason for request. 2. Findings. 3. Follow-up Consultations: seen by hospitalist Summary of Hospital Course include:: 1. Description of specific treatment plan utilized for patients during their course of treatmen. 2. Summarize the time- course for resolution of acute symptoms and/or regressed behaviors. 3. Describe issues identified and worked on during hospitalization. 4. Describe medication utilized. 5. Describe medical problems identified and treated. 6. Reassessment of suicide risk Summary of Hospital Course: [facility] and oriented to the unit. pt was placed on routine safety protocols. pt was started on risperdal and the dose titrated up to 2mg bid. she was encouraged to participate in groups, but tended to isolate in her room. she was initially agreeing to take an injectable form of risperdal that would help her with adherence to therapy. however, the patient refused to allow the initiation of invega sustenna. the patient signed a 48 hour notice of her intention to leave the hospital. she was not exhibiting behavior that would place her at an immediate danger to self/others and had been screened earlier in the admission. she was discharged with a prescription for 2 weeks with one refill of risperdal. - Final Diagnosis (DSM 5) Condition upon Discharge: FAIR DSM 5: schizophrenia, paranoid type Disposition: HOME/ ROUTINE Follow-up Treatment Plan: follow up with aftercare as directed take medications as prescribed do not use alcohol, tobacco or other illicit substances call 911 if any suicidal or homicidal thoughts Prescriptions/Medication Reconciliation: Risperidone [Risperdal] 2 mg PO BID #30 tablet - Smoking Cessation Smoking Cessation Medication prescribed: No - Antipsychotic Medications Pt discharged on 2 or more routine antipsychotic medications: No
== END 2017-03-02 13:26 | disposition home or self-care (01) | DRG 430 ==
LOC: H.ER 07:15 → H.ERHOLD 10:33 → H.PSYCH 12:45
PROVIDERS: ADMIT Psychiatry & Neurology Psychiatry; ATTEND Psychiatry & Neurology Psychiatry
PROC: GZHZZZZ Group Psychotherapy (ICD-10-PCS; principal; 2017-02-21)
PROC: GZ51ZZZ Individual Psychotherapy, Behavioral (ICD-10-PCS; 2017-02-21)
DX: F20.0 Paranoid schizophrenia (principal); Z91.14 Patient's other noncompliance with medication regimen; Z91.19 Patient's noncompliance with other medical treatment and regimen

== ENCOUNTER 2017-04-10 15:35 | Inpatient (IN) | payer MEDICAID ==
[2017-04-10 15:36] VITALS: BMI 25.9
--- NOTE | 2017-04-10 16:14 | ED PDOC ---
HPI: Psych/Substance Abuse Time Seen by Provider: 04/10/17 15:56 Chief Complaint (Nursing): Psychiatric Evaluation Chief Complaint (Provider): pysch eval History Per: Patient History/Exam Limitations: no limitations Additional Complaint(s): 42yo F in ED for eval of hallucinations-states she is seeing rates in her room. PT with hx of schizophrenia and state she is complaint with Albilify. PT with recent admission February 2017 .no SI/HI. Past Medical History Reviewed: Historical Data, Nursing Documentation, Vital Signs Vital Signs: Last Vital Signs Temp 98.0 F 04/10/17 15:42 Pulse 93 H 04/10/17 15:42 Resp 16 04/10/17 15:42 BP 108/72 04/10/17 15:42 Pulse Ox 99 04/10/17 15:42 - Medical History PMH: Depression, Schizophrenia Denies: Diabetes, Hepatitis, HIV, HTN, Kidney Stones, Chronic Kidney Disease , Seizures, Sexually Transmitted Disease - Family History Family History: States: Diabetes - Immunization History Hx Tetanus Toxoid Vaccination: No Hx Influenza Vaccination: No Hx Pneumococcal Vaccination: No - Home Medications Home Medications: Ambulatory Orders Medication Instructions Recorded Naphazoline/Pheniramine Opht 1 drop OU QID bottle 03/01/17 [Naphcon-A Opht] Risperidone [Risperdal] 2 mg PO BID #30 tablet 03/01/17 - Allergies Allergies/Adverse Reactions: Allergies Allergy/AdvReac Type Severity Reaction Status Date / Time aripiprazole [From Abilify] Allergy RASH Verified 10/14/16 14:48 shellfish derived Allergy ANAPHYLAXIS Verified 02/25/17 16:56 Review of Systems ROS Statement: Except As Marked, All Systems Reviewed And Found Negative Constitutional: Negative for: Fever, Chills Psych: Positive for: Depression Physical Exam - Reviewed Nursing Documentation Reviewed: Yes Vital Signs Reviewed: Yes - Physical Exam Appears: Positive for: Well, Non-toxic, No Acute Distress Skin: Positive for: Normal Color, Warm, DRY Eye Exam: Positive for: EOMI, Normal appearance, PERRL Cardiovascular/Chest: Positive for: Regular Rate, Rhythm Respiratory: Positive for: CNT, Normal Breath Sounds Neurologic/Psych: Positive for: Alert, Oriented - Laboratory Results Result Diagrams: 04/10/17 16:30 04/10/17 16:30 - ECG O2 Sat by Pulse Oximetry: 99 - Progress ED Course And Treament: Orders Category Date Time Status ALCOHOL SERUM Stat Chem 04/10/17 16:10 Uncollected COMP METABOLIC PANEL Stat Chem 04/10/17 16:10 Uncollected DRUG SCREEN, URINE Stat Chem 04/10/17 16:10 Uncollected Crisis Evaluation As Ordered Cons 04/10/17 16:11 Ordered CBC (WITH DIFFERENTIAL) Stat MICHAEL 04/10/17 16:10 Uncollected URINALYSIS Stat URINALYSIS 04/10/17 16:10 Uncollected Medical Decision Making Medical Decision Making: pt will required admission for schizophrenia, MD Kevin pt is medically stable for admission. Disposition - Clinical Impression Clinical Impression: Schizophrenia - Patient ED Disposition Is Patient to be Admitted: Yes - Disposition Disposition Time: 17:41 Condition: STABLE Forms: [facility] (Albanian) - Pt Status Changed To: Hospital Disposition Of: Inpatient - Admit Certification Admit to Inpatient:: After my assessment, the patient will require hospitalization for at least two midnights. This is because of the severity of symptoms shown, intensity of services needed, and/or the medical risk in this patient being treated as an outpatient. - POA Present On Arrival: None
[2017-04-10 16:41] LABS: BASO % 0.4 % (0.0-2.0); EOS % 0.2 % (0.0-4.0); HEMATOCRIT 39.8 % (34.0-47.0); LYMPH % 21.4 % (20.0-40.0); MEAN CELL VOLUME 79.2 fl (81.0-99.0); MEAN CORPUSCULAR HEMOGLOBIN 25.7 pg (27.0-31.0); MEAN CORPUSCULAR HGB CONC 32.4 g/dL (33.0-37.0); MEAN PLATELET VOLUME 9.4 fl (7.2-11.7); MONO # 0.6 K/uL (0.0-0.8); MONO % 6.1 % (0.0-10.0); NEUT # 6.6 K/uL (1.8-7.0); NEUT % 71.9 % (50.0-75.0); NRBC % 0.1 % (0.0-0.0); RED CELL DISTRIBUTION WIDTH 14.6 % (11.5-14.5); WHITE BLOOD COUNT 9.2 K/uL (4.8-10.8)
[2017-04-10 16:51] LABS: RBC URINE 9 /hpf (0-3); URINE BACTERIA RARE (<OCC); URINE BILIRUBIN NEGATIVE (NEGATIVE); URINE BLOOD SMALL (NEGATIVE); URINE COLOR YELLOW (YELLOW); URINE GLUCOSE (UA) NEG (Normal); URINE KETONE 20 mg/dL (NEGATIVE); URINE LEUKOCYTE ESTERASE NEG Leu/uL (Negative); URINE PROTEIN 30 mg/dL (NEGATIVE); URINE UROBILINOGEN 0.2-1.0 mg/dL (0.2-1.0); WBC URINE 3 /hpf (0-5)
[2017-04-10 17:00] LABS: ALB/GLOB RATIO 1.1 (1.0-2.1); ALCOHOL SERUM < 10 mg/dl (0-10); ALKALINE PHOSPHATASE 92 U/L (38-126); ALT/SGPT 30 U/L (9-52); AST/SGOT 18 U/L (14-36); BLOOD UREA NITROGEN 7 mg/dl (7-17); CALCIUM 9.4 mg/dL (8.4-10.2); CARBON DIOXIDE 24 mmol/L (22-30); CHLORIDE 104 mmol/L (98-107); GFR AFRICAN-AMERICAN > 60; GLUCOSE,RANDOM 83 mg/dL (65-105); POTASSIUM 4.1 MMOL/L (3.6-5.0); SODIUM 144 mmol/l (132-148); TOTAL PROTEIN 8.3 G/DL (6.3-8.2)
[2017-04-10] MEDS ORDERED: Magnesium Hydroxide Susp 30 ml UD PO PRN (19:38)
[2017-04-10] MEDS ORDERED: DiphenhydrAMINE 50 mg/ml Inj IM PRN (19:38)
[2017-04-10] MEDS ORDERED: Alum-Mag Hydrox-Simethicone Susp (30 mL) PO PRN (19:38)
[2017-04-10] MEDS ORDERED: Bismuth Subsalicylate 262 mg/15 ml Sus (240 ml) PO PRN (19:40)
--- NOTE | 2017-04-10 20:01 | PCM.BM ---
<Glenn Tee P - Last Filed: 04/10/17 20:00> Treatment Plan Problems - Problems identified on initial assessmt Visual hallucinations Date Initiated: 04/10/17 (n) Time Initiated: 20:00 Assessment reference: NA Status: Active Medication nonadherence Date Initiated: 04/10/17 Time Initiated: 20:00 Assessment reference: NA Status: Active Treatment assets and liabiliti Patient Assests: cooperative, ADL independent, physically healthy, negotiates basic needs, cognitively intact Patient Liabilities: other (med noncompliance) - Milieu Protocol Maintain good personal hygiene: daily Encourage regular showers, daily Remind patient to perform daily oral care Maintain personal safety: every shift Educate patient to report safety concerns to staff, every shift Monitor environment for contraband/sharps Medication safety: Monitor for expected outcome, potential side effects: every shift, Assess barriers to learning: every shift, Assess readiness for medication education: every shift <Arnav Santos J - Last Filed: 04/13/17 12:13> Family Contact Family involvement: Family/SO is involved Family contact: Patient agrees to contact, Family has been contacted by patient , Telephone contact initiated by staff Family contact name: Dameon Estrella (Brother, ) Family contacted how many times per week?: 4 Family contact comment: Unit Assembler spoke with pt's brother, Dameon Estrella ([phone]), to gain collateral. Dameon is concerned that the pt is so psychotic and delusional that she is unable to take care of herself at this time. He does not want the pt to be discharged without him being informed as he wants to pick her up and not be discharged to the street. Dameon is frustrated as he feels that pt often falls through the cracks and does not have a place where pt can be safe. - Goals for Treatment Patient goals for treatment: Pt would like to be less depressed and find a place to live where she can feel safe. Pt feels that residing with her brother is difficult because he has too many rules. Patient's family/SO goals for treatment: Pt's family would like pt to be stabilized on medication and her delusions and hallucinations to be lessesned. Discharge/Continuing Care - Education Needs Education Needs: Family Medication, Family Diagnosis/Disease Process, Family Aftercare Safety Plan, Patient Medication, Patient Diagnosis/Disease Process, Patient Coping Skills, Patient Activities of Daily Living, Patient Aftercare Safety Plan - Discharge Discharge Criteria: Free of paranoid thoughts, Free of agitation, Normal sleep pattern, Reduction of target symptoms Discharge to:: Home, With Family - Treatment Team Participation Discussed with Family/SO: Yes Was Patient/Family/SO present at Treatment Team Meeting: Yes <Parvin Morales - Last Filed: 04/21/17 10:09> - Diagnosis (1) Depression Status: Acute (2) Schizophrenia Status: Chronic Interventions: 04/21/17 10:10 psychotherapy pharmacotherapy <Erlinda Guzman - Last Filed: 04/21/17 11:41> Treatment assets and liabiliti Patient Assests: adapts well, cooperative, ADL independent, physically healthy, good support system, negotiates basic needs, cognitively intact Patient Liabilities: other (poor insight, hx of noncompliance) Family Contact Family involvement: Family/SO is involved Family contact: Patient agrees to contact, Family has been contacted by patient , Telephone contact initiated by staff Family contact comment: Unit Assembler has been in frequent contact with patients brother Dameon(brother)([phone]) requesting clinical updates regarding patients progress on 3. Unit Assembler has provided updated clinical regarding patients progress. Upon admission, patients brother reports that family believes that patient continues to decompensated secondary to residing in her mothers old home, stating "She didn't speak to her mother before she . She never processed that." Unit Assembler expressed understanding but emphasized importance of compliance with outpatient services (therapy/medication management) to improve functioning, ensure safety in the community and reduce risk of future hospitalizations. Patients brother expressed understanding of the above. Unit Assembler has provided information regarding aftercare. Patients brother to pick- up patient from [facility] on 04/21. - Outside Agency Agency 1 Care involvment: Other Agency contact name: [facility] Agency contact number: [phone] - Goals for Treatment Patient goals for treatment: Patient to continue stabilization on 3NP through medication management and group/supportive therapy. Patient to be encouraged to attend groups regularly to promote self-awareness, compliance, and improve insight, coping skills and self-esteem. Patient to be provided with referral for appropriate level of aftercare to reduce risk of future hospitalizations and ensure safety in the community. Discharge/Continuing Care - Education Needs Education Needs: Family Medication, Family Coping Skills, Family Community resources, Family Aftercare Safety Plan, Patient Medication, Patient Coping Skills, Patient Community resources, Patient Aftercare Safety Plan - Discharge Discharge Criteria: Free of paranoid thoughts, Free of agitation, Normal sleep pattern, Reduction of target symptoms Discharge to:: Home, With Family - Treatment Team Participation Patient/Family/SO Statement: 04/21/17 11:40 Unit Assembler has met with patient to discuss progress on 3NP several times since admission. Patient presents with brighter affect and with more spontaneous responses. Patient better able to actively participate in discussions regarding treatment. Patient states "I feel too awake. I'm used to being asleep. I don't like it." Unit Assembler explained that patient has been more compliant and receptive to tx on 3NP during this admission than during prior hospitalizations and that patient might be feeling the positive benefits of medications which can feel foreign initially. Unit Assembler explained benefits of continued stabilization on 3NP to reduce risk of future hospitalizations. Patient states "In the past, by this time I would've signed a 48 hour notice. I haven't. I keep coming back and it's getting ridiculous." Patient attended tx team on 04/20. Unit Assembler emphasized importance of compliance with aftercare. Patient remains hesitant but receptive. Discussed with Family/SO: Yes Was Patient/Family/SO present at Treatment Team Meeting: Yes
[2017-04-11 07:05] LABS: T4 8.09 ug/dl (5.5-11.0)
[2017-04-11 07:19] LABS: THYROID STIMULATING HORMONE 0.4 mIU/ML (0.46-4.68)
--- NOTE | 2017-04-11 10:39 | CP.PCM.CON ---
<Vanita Ann - Last Filed: 04/11/17 14:03> History of Present Illness - History of Present Illness History of Present Illness: 42 y/o female with PMHx of paranoia, schizophrenia and hallucinations seen at bedside after consult for medical evaluation. Patient states she came to the hospital because she was experiencing hallucinations. Pt admits to occasionally feeling anxious and depressed. Pt states that her symptoms are normally controlled by Risperidone. Pt denies having any suicidal or homicidal ideations. Pt denies F/C/N/V/CP/SOB. Pt has no other complaints at this time. Social: Denies EtOH, cigarette or illicit drug use ALL: shellfish PSH: denies Review of Systems - Review of Systems All systems: reviewed and no additional remarkable complaints except (per HPI) Past Patient History - Infectious Disease Hx of Infectious Diseases: None - Tetanus Immunizations Tetanus Immunization: Unknown - Past Social History Smoking Status: Never Smoked - CARDIAC Hx Cardiac Disorders: No Hx Hypertension: No - PULMONARY Hx Respiratory Disorders: No Hx Tuberculosis: No - NEUROLOGICAL Hx Neurological Disorder: No Hx Seizures: No - HEENT Hx HEENT Problems: No - RENAL Hx Chronic Kidney Disease: No - ENDOCRINE/METABOLIC Hx Endocrine Disorders: No - HEMATOLOGICAL/ONCOLOGICAL Hx Blood Disorders: No Hx Human Immunodeficiency Virus (HIV): No - INTEGUMENTARY Hx Dermatological Problems: No - MUSCULOSKELETAL/RHEUMATOLOGICAL Hx Musculoskeletal Disorders: No - GASTROINTESTINAL Hx Gastrointestinal Disorders: No - GENITOURINARY/GYNECOLOGICAL Hx Genitourinary Disorders: No Hx Sexually Transmitted Disorders: No - PSYCHIATRIC Hx Schizophrenia: Yes Hx Substance Use: No - SURGICAL HISTORY Hx Surgeries: Yes Other/Comment: myomectomy - ANESTHESIA Hx Anesthesia: Yes Hx Anesthesia Reactions: No Hx Malignant Hyperthermia: No Meds Allergies/Adverse Reactions: Allergies Allergy/AdvReac Type Severity Reaction Status Date / Time aripiprazole [From Abilify] Allergy RASH Verified 10/14/16 14:48 shellfish derived Allergy ANAPHYLAXIS Verified 02/25/17 16:56 - Medications Medications: Current Medications Acetaminophen (Tylenol 325mg Tab) 650 mg PO Q4 PRN PRN Reason: pain level 4-7 Al Hydrox/Mg Hydrox/Simethicone (Maalox Plus 30 Ml) 30 ml PO Q4 PRN PRN Reason: Dyspepsia Bismuth Subsalicylate (Pepto-Bismol) 524 mg PO Q4 PRN PRN Reason: Diarrhea Diphenhydramine HCl (Benadryl) 50 mg IM Q6 PRN PRN Reason: Extrapyramidal S/S Unable PO Diphenhydramine HCl (Benadryl) 50 mg PO Q6 PRN PRN Reason: Extrapyramidal Symptoms Diphenhydramine HCl (Benadryl) 50 mg PO HS PRN PRN Reason: Sleep Last Admin: 04/10/17 21:20 Dose: 50 mg Haloperidol (Haldol) 5 mg PO Q4 PRN PRN Reason: Agitation Haloperidol Lactate (Haldol) 5 mg IM Q4 PRN PRN Reason: Agitation, Unable to Take PO Lorazepam (Ativan) 2 mg IM Q4 PRN PRN Reason: Anxiety/Agitation,Unable PO Lorazepam (Ativan) 2 mg PO Q4 PRN PRN Reason: Anxiety/Agitation Magnesium Hydroxide (Milk Of Magnesia) 30 ml PO HS PRN PRN Reason: Constipation Physical Exam - Constitutional Appears: Well, Non-toxic, No Acute Distress - Head Exam Head Exam: ATRAUMATIC, NORMAL INSPECTION, NORMOCEPHALIC - Eye Exam Eye Exam: EOMI, Normal appearance, PERRL Pupil Exam: NORMAL ACCOMODATION, PERRL - ENT Exam ENT Exam: Mucous Membranes Moist, Normal Exam - Neck Exam Neck exam: Positive for: Full Rom, Normal Inspection Additional comments: supple, non-tender - Respiratory Exam Respiratory Exam: Clear to Auscultation Bilateral, NORMAL BREATHING PATTERN Additional comments: no wheezing, no rales - Cardiovascular Exam Cardiovascular Exam: REGULAR RHYTHM, +S1, +S2 Additional comments: no murmur, no gallop, no JVD - GI/Abdominal Exam GI & Abdominal Exam: Normal Bowel Sounds, Soft Additional comments: non-tender - Rectal Exam Rectal Exam: Deferred - Extremities Exam Extremities exam: Positive for: normal capillary refill, normal inspection, pedal pulses present Additional comments: MMT 5/5 x4 extremities for abduction, adduction, dorsiflexion and plantarflexion - Back Exam Back exam: NORMAL INSPECTION - Neurological Exam Neurological exam: Alert, Oriented x3 - Psychiatric Exam Psychiatric exam: Depressed, Flat Affect - Skin Skin Exam: Intact, Normal Color Additional comments: no lesions noted Results - Vital Signs Recent Vital Signs: Last Vital Signs Temp 97.2 F L 04/11/17 09:00 Pulse 90 04/11/17 09:00 Resp 18 04/11/17 09:00 BP 121/72 04/11/17 09:00 Pulse Ox 98 04/10/17 18:02 - Labs Result Diagrams: 04/10/17 16:30 04/10/17 16:30 Labs: Laboratory Results - last 24 hr 04/10/17 04/10/17 04/10/17 16:30 16:30 16:30 WBC 9.2 RBC 5.02 Hgb 12.9 Hct 39.8 MCV 79.2 L MCH 25.7 L MCHC 32.4 L RDW 14.6 H Plt Count 248 MPV 9.4 Neut % (Auto) 71.9 Lymph % (Auto) 21.4 Bowman % (Auto) 6.1 Eos % (Auto) 0.2 Baso % (Auto) 0.4 Neut # 6.6 Lymph # 2.0 Bowman # 0.6 Eos # 0.0 Baso # 0.0 Sodium 144 Potassium 4.1 Chloride 104 Carbon Dioxide 24 Anion Gap 19 BUN 7 Creatinine 0.6 L Est GFR ( Amer) > 60 Est GFR (Non-Af Amer) > 60 Random Glucose 83 Calcium 9.4 Total Bilirubin 1.0 AST 18 ALT 30 Alkaline Phosphatase 92 Total Protein 8.3 H Albumin 4.4 Globulin 3.9 Albumin/Globulin Ratio 1.1 Triglycerides Cholesterol LDL Cholesterol Direct HDL Cholesterol Thyroxine (T4) TSH 3rd Generation Urine Color Urine Clarity Urine pH Ur Specific [place] Urine Protein Urine Glucose (UA) Urine Ketones Urine Blood Urine Nitrate Urine Bilirubin Urine Urobilinogen Ur Leukocyte Esterase Urine RBC (Auto) Urine Microscopic WBC Ur Squamous Epith Cells Urine Bacteria Hyaline Casts Urine Opiates Screen Negative Urine Methadone Screen Negative Ur Barbiturates Screen Negative Ur Phencyclidine Scrn Negative Ur Amphetamines Screen Negative U Benzodiazepines Scrn Negative U Oth Cocaine Metabols Negative U Cannabinoids Screen Negative Alcohol, Quantitative < 10 04/10/17 04/11/17 16:30 06:25 WBC RBC Hgb Hct MCV MCH MCHC RDW Plt Count MPV Neut % (Auto) Lymph % (Auto) [place] % (Auto) Eos % (Auto) Baso % (Auto) Neut # Lymph # Bowman # Eos # Baso # Sodium Potassium Chloride Carbon Dioxide Anion Gap BUN Creatinine Est GFR ( Amer) Est GFR (Non-Af Amer) Random Glucose Calcium Total Bilirubin AST ALT Alkaline Phosphatase Total Protein Albumin Globulin Albumin/Globulin Ratio Triglycerides 70 D Cholesterol 149 LDL Cholesterol Direct 79 HDL Cholesterol 43 Thyroxine (T4) 8.09 TSH 3rd Generation 0.40 L Urine Color Yellow Urine Clarity Cloudy Urine pH 6.0 Ur Specific [place] 1.018 Urine Protein 30 Urine Glucose (UA) Neg Urine Ketones 20 Urine Blood Small Urine Nitrate Negative Urine Bilirubin Negative Urine Urobilinogen 0.2-1.0 Ur Leukocyte Esterase Neg Urine RBC (Auto) 9 H Urine Microscopic WBC 3 Ur Squamous Epith Cells 9 H Urine Bacteria Rare Hyaline Casts 3-5 H Urine Opiates Screen Urine Methadone Screen Ur Barbiturates Screen Ur Phencyclidine Scrn Ur Amphetamines Screen U Benzodiazepines Scrn U Oth Cocaine Metabols U Cannabinoids Screen Alcohol, Quantitative Assessment & Plan (1) Schizophrenia Assessment and Plan: psych to continue medical management Status: Chronic <Lei Del Valle D - Last Filed: 04/11/17 20:08> Meds - Medications Medications: Current Medications Acetaminophen (Tylenol 325mg Tab) 650 mg PO Q4 PRN PRN Reason: pain level 4-7 Al Hydrox/Mg Hydrox/Simethicone (Maalox Plus 30 Ml) 30 ml PO Q4 PRN PRN Reason: Dyspepsia Bismuth Subsalicylate (Pepto-Bismol) 524 mg PO Q4 PRN PRN Reason: Diarrhea Diphenhydramine HCl (Benadryl) 50 mg IM Q6 PRN PRN Reason: Extrapyramidal S/S Unable PO Diphenhydramine HCl (Benadryl) 50 mg PO Q6 PRN PRN Reason: Extrapyramidal Symptoms Diphenhydramine HCl (Benadryl) 50 mg PO HS PRN PRN Reason: Sleep Last Admin: 04/10/17 21:20 Dose: 50 mg Haloperidol (Haldol) 5 mg PO Q4 PRN PRN Reason: Agitation Haloperidol Lactate (Haldol) 5 mg IM Q4 PRN PRN Reason: Agitation, Unable to Take PO Lorazepam (Ativan) 2 mg IM Q4 PRN PRN Reason: Anxiety/Agitation,Unable PO Lorazepam (Ativan) 2 mg PO Q4 PRN PRN Reason: Anxiety/Agitation Magnesium Hydroxide (Milk Of Magnesia) 30 ml PO HS PRN PRN Reason: Constipation Mirtazapine (Remeron) 7.5 mg PO HS CARLOS Risperidone (Risperdal M-Tab) 1 mg PO BID CARLOS Last Admin: 04/11/17 17:30 Dose: 1 mg Results - Vital Signs Recent Vital Signs: Last Vital Signs Temp 97.1 F L 04/11/17 16:13 Pulse 74 04/11/17 16:13 Resp 18 04/11/17 16:13 BP 122/77 04/11/17 16:13 Pulse Ox 98 04/10/17 18:02 - Labs Result Diagrams: 04/10/17 16:30 04/10/17 16:30 Labs: Laboratory Results - last 24 hr 04/11/17 04/11/17 06:25 06:25 Hemoglobin A1c 5.4 Triglycerides 70 D Cholesterol 149 LDL Cholesterol Direct 79 HDL Cholesterol 43 Thyroxine (T4) 8.09 TSH 3rd Generation 0.40 L
[2017-04-11] MEDS: Risperidone M tab 1 MG PO SCH ×2 (13:35→17:30)
--- NOTE | 2017-04-11 13:45 | PCM.PSYCH ---
Initial Psychiatric Evaluation - Initial Psychiatric Evaluation Type of Admission: Voluntary Chief Complaint (in patient's own words): i was seeing rats in my room Patient's Reaction to Hospitalization: patient agreed to receive help History of Present Illness and Precipitating Events: patient with previous diagnosis of schizophrenia paranoid type , patient has been partially compliant with medications and follow up , reportedly patient started experiencing perceptual disturbances including non specific non command auditory hallucinations and visual hallucinations, patient was brought to er for stabilization patient also reported feeling depressed with poor sleep and poor appetite denied manic symptoms denied suicidal or homicidal ideations Current Medications: Active Medications Generic Name Dose Route Start Last Admin Trade Name Freq PRN Reason Stop Dose Admin Acetaminophen 650 mg 04/10/17 19:38 Tylenol 325mg Tab PO Q4 PRN pain level 4-7 Al Hydrox/Mg Hydrox/Simethicone 30 ml 04/10/17 19:38 Maalox Plus 30 Ml PO Q4 PRN Dyspepsia Bismuth Subsalicylate 524 mg 04/10/17 19:40 Pepto-Bismol PO Q4 PRN Diarrhea Diphenhydramine HCl 50 mg 04/10/17 19:38 Benadryl IM Q6 PRN Extrapyramidal S/S Unable PO Diphenhydramine HCl 50 mg 04/10/17 19:38 Benadryl PO Q6 PRN Extrapyramidal Symptoms Diphenhydramine HCl 50 mg 04/10/17 19:40 04/10/17 21:20 Benadryl PO 50 mg HS PRN Administration Sleep Haloperidol 5 mg 04/10/17 19:38 Haldol PO Q4 PRN Agitation Haloperidol Lactate 5 mg 04/10/17 19:38 Haldol IM Q4 PRN Agitation, Unable to Take PO Lorazepam 2 mg 04/10/17 19:38 Ativan IM Q4 PRN Anxiety/Agitation,Unable PO Lorazepam 2 mg 04/10/17 19:38 Ativan PO Q4 PRN Anxiety/Agitation Magnesium Hydroxide 30 ml 04/10/17 19:38 Milk Of Magnesia PO HS PRN Constipation Mirtazapine 7.5 mg 04/11/17 22:00 Remeron PO HS CARLOS Risperidone 1 mg 04/11/17 13:00 Risperdal M-Tab PO BID CARLOS Past Psychiatric History - Past Psychiatric History Prior Professional Help: multiple inpatient for non compliance History of Abuse: denied History of ETOH/Drug Use: denied History of Family Illness: denied Pertinent Medical Hx (Current Medical&Sleep Prob, Allergies): Allergies Allergy/AdvReac Type Severity Reaction Status Date / Time aripiprazole [From Abilify] Allergy RASH Verified 10/14/16 14:48 shellfish derived Allergy ANAPHYLAXIS Verified 02/25/17 16:56 Risperidone [Risperdal] 2 mg PO BID #30 tablet 03/01/17 Mental Status Examination - Personal Presentation Personal Presentation: Looks older than stated age - Affect Affect: Constricted, Blunted, Depressed - Motor Activity Motor Activity: Psychomotor Retardation - Reliability in Providing Information Reliability in Providing Information: Fair - Speech Speech: Tangential, Other - Mood Mood: Depressed - Formal Thought Process Formal Thought Process: Hallucinations Additional comments: non command auditory and visual hallucinations - Hallucinations/Delusions Hallucinations: Visual, Auditory - Obsessions/Compulsions Obsessions: No Compulsions: No - Cognitive Functions Orientation: Person, Place Sensorium: Alert Attention/Concentration: Attentive Judgement: Imparied, as evidence by: Lack of insight into illness Memory: Recent intact, as evidence by: Ability to recall events of the day - Risk Risk: Diminished functioning - Strength & Assets Inventory Strength & Assets Inventory: Family support - Limitations Additional comments: poor insight DSM 5 DX - DSM 5 DSM 5 Diagnosis: schizophrenia paranoid type - Recommended/Plan of Treatment Treatment Recommendations and Plan of Treatment: patient will be started on oral risperidone with plan to change to risperidone consta for compliance start remeron for depression patient will be monitored for psychopharmacological effects and side effect profile
--- NOTE | 2017-04-11 16:32 | CARD ---
APPROVED REPORT EKG Measurement Heart [id number] <Conclusion> Normal sinus rhythm Nonspecific T wave abnormality Abnormal ECG
[2017-04-12] MEDS: Risperidone M tab 1 MG PO SCH ×2 (10:00→17:11)
--- NOTE | 2017-04-12 12:27 | PCM.PYCHPN ---
Psychiatric Progress Note - Psychiatric Progress Note Patient seen today, length of contact: patient evaluated discussed with team chart reviewed Patient Chief Complaint: I am not seeing things any more Problems Identified/Issues Discussed: patient continues to be isolative in bed refusing to attend groups, limited insight into illness, patient however reported better sleep and better appetite denied any side effects of medications Medication Change: No Medical Record Reviewed: Yes Mental Status Examination - Cognitive Function Orientation: Person, Place Attention: WNL Concentration: WNL Association: WNL Fund of Knowledge: Poor - Mood Mood: Depressed - Affect Affect: Constricted, Blunted, Depressed - Speech Speech: Soft - Suicidal Ideation Suicidal Ideation: No - Homicidal Ideation Homicidal Ideation: No Goal/Treatment Plan - Goal/Treatment Plan Need for Continued Stay: Discharge may exacerbated symptoms Progress Toward Problem(s) and Goals/Treatment Plan: patient shows clearing off, of the hallucinations l , compliant with medications, no reported side effects will attempt to change to risperidone consta for better compliance upon patient consent brief cbt and supportive therapy provided
[2017-04-13] MEDS: Risperidone M tab 1 MG PO SCH ×2 (09:33→17:26)
--- NOTE | 2017-04-13 15:05 | PCM.PYCHPN ---
Psychiatric Progress Note - Psychiatric Progress Note Patient seen today, length of contact: patient evaluated discussed with team chart reviewed Patient Chief Complaint: i want to go to a boarding home i do not want to live with my brother Problems Identified/Issues Discussed: patient reported improved sleep with remeron and slightly improved appetite, reported clearing off of the auditory and visual hallucinations patient however continues to appear dysphoric , isolative in her room, needs a lot of encouragment to attend groups will start risperidone consta for better compliance Medication Change: Yes (start risperidone consta 25 mg im) Medical Record Reviewed: Yes Mental Status Examination - Cognitive Function Orientation: Person, Place Attention: WNL Concentration: WNL Association: WNL Fund of Knowledge: Poor - Mood Mood: Depressed - Affect Affect: Constricted, Blunted, Depressed - Speech Speech: Soft - Formal Thought Process Psychotic Thoughts and Behaviors: patient denied any current perceptual disturbances, non elicited - Suicidal Ideation Suicidal Ideation: No - Homicidal Ideation Homicidal Ideation: No Goal/Treatment Plan - Goal/Treatment Plan Need for Continued Stay: Discharge may exacerbated symptoms Progress Toward Problem(s) and Goals/Treatment Plan: patient shows clearing off, of the hallucinations l , compliant with medications, no reported side effects, started on risperidone consta for better compliance brief cbt and supportive therapy provided
[2017-04-14] MEDS: Risperidone M tab 1 MG PO SCH ×2 (09:21→18:25)
[2017-04-14] MEDS ORDERED: risperiDONE Consta 25mg/2ml Syringe IM ONE (11:24)
--- NOTE | 2017-04-14 11:32 | PCM.PYCHPN ---
Psychiatric Progress Note - Psychiatric Progress Note Patient seen today, length of contact: patient evaluated discussed with team chart reviewed 30 min Patient Chief Complaint: I do not know if groups will help me Problems Identified/Issues Discussed: patient continues to be isolative in her room , guarded, patient encouraged to attend groups , reported improved sleep and appetite, l will start risperidone consta for better compliance continue with risperidone 2mg daily and remeron 15 mg qhs patient will be monitored for psychopharmacological effects and side effect profile Medication Change: Yes (start risperidone consta 25 mg im) Medical Record Reviewed: Yes Mental Status Examination - Cognitive Function Orientation: Person, Place Attention: WNL Concentration: WNL Association: WNL Fund of Knowledge: Poor - Mood Mood: Depressed - Affect Affect: Constricted, Blunted, Depressed - Speech Speech: Soft - Formal Thought Process Formal Thought Process: Paranoia Psychotic Thoughts and Behaviors: patient continues to be guarded at times appears internally preoccupied, denied any command hallucinations - Suicidal Ideation Suicidal Ideation: No - Homicidal Ideation Homicidal Ideation: No Goal/Treatment Plan - Goal/Treatment Plan Need for Continued Stay: Discharge may exacerbated symptoms Progress Toward Problem(s) and Goals/Treatment Plan: patient shows clearing off, of the hallucinations l , compliant with medications, no reported side effects, continues to be isolative and guarded brief cbt and supportive therapy provided
[2017-04-15] MEDS: Risperidone M tab 1 MG PO SCH ×2 (09:15→17:50)
[2017-04-15 12:10] LABS: BASO % 0.5 % (0.0-2.0); EOS # 0.1 K/uL (0.0-0.7); EOS % 0.9 % (0.0-4.0); HEMATOCRIT 41.2 % (34.0-47.0); LYMPH # 1.2 K/uL (1.0-4.3); MEAN CELL VOLUME 80.6 fl (81.0-99.0); MEAN CORPUSCULAR HEMOGLOBIN 25.2 pg (27.0-31.0); MEAN CORPUSCULAR HGB CONC 31.2 g/dL (33.0-37.0); MEAN PLATELET VOLUME 9.7 fl (7.2-11.7); MONO # 0.4 K/uL (0.0-0.8); MONO % 5.8 % (0.0-10.0); NEUT # 5.4 K/uL (1.8-7.0); NEUT % 75.8 % (50.0-75.0); RED CELL DISTRIBUTION WIDTH 14.9 % (11.5-14.5); WHITE BLOOD COUNT 7.2 K/uL (4.8-10.8)
--- NOTE | 2017-04-15 14:42 | PCM.PYCHPN ---
Psychiatric Progress Note - Psychiatric Progress Note Patient seen today, length of contact: patient evaluated discussed with team chart reviewed 30 min Patient Chief Complaint: I ATTENDED SOME GROUPS TODAY Problems Identified/Issues Discussed: PATIENT ON EVALUATION APPEARS LESS DEPRESSED, LESS GUARDED , ATTENDED FEW GROUPS , COMPLIANT WITH MEDICATION, NO REPORTED SIDE EFFECTS REPORTED IMPROVED SLEEP AND APPETITE, DSM 5 Symptoms Update: SCHIZOPHRENIA PARANOID TYPE Medication Change: No Medical Record Reviewed: Yes Mental Status Examination - Cognitive Function Orientation: Person, Place Attention: WNL Concentration: WNL Association: WNL Fund of Knowledge: Poor - Mood Mood: Neutral - Affect Affect: Constricted - Speech Speech: Soft - Formal Thought Process Formal Thought Process: Circumstantial Psychotic Thoughts and Behaviors: patient DENIED ANY CURRENT PSYCHOTIC SYMPTOMS NON ELICITED - Suicidal Ideation Suicidal Ideation: No - Homicidal Ideation Homicidal Ideation: No Goal/Treatment Plan - Goal/Treatment Plan Need for Continued Stay: Discharge may exacerbated symptoms Progress Toward Problem(s) and Goals/Treatment Plan: patient shows clearing off, of the hallucinations l , compliant with medications, no reported side effects, , WILL FOLLOW UP ON WBC AFTER STARTING REMERON brief cbt and supportive therapy provided
[2017-04-16] MEDS: Risperidone M tab 1 MG PO SCH ×2 (10:07→18:13)
--- NOTE | 2017-04-16 10:08 | PCM.PYCHPN ---
Psychiatric Progress Note - Psychiatric Progress Note Patient seen today, length of contact: Patient evaluated, case discussed w/ team , chart reviewed Patient Chief Complaint: "I'm so-so" Problems Identified/Issues Discussed: Patient is calm, cooperative, describes her mood as "so-so". She reports that her depression is improving, but she continues to have constricted affect and seems withdrawn and possibly internally preoccupied at times. She denies current AH/VH/paranoia. She denies adverse effects to medications. Diagnostic Results: CBC 04/15/17: WBC 7.2, RBC 51., Hgb 12.8, Hct 41.2 Medication Change: No Medical Record Reviewed: Yes Consults ordered or reviewed: Medicine consult Mental Status Examination - Cognitive Function Orientation: Person, Place Memory: Intact Attention: WNL Concentration: WNL Association: WNL Fund of Knowledge: Poor Decription of patient's judgement and insights: Improving I/J - Mood Mood: Neutral - Affect Affect: Constricted - Speech Speech: Soft - Formal Thought Process Formal Thought Process: Circumstantial Psychotic Thoughts and Behaviors: Denies current AH/VH/delusions - Suicidal Ideation Suicidal Ideation: No - Homicidal Ideation Homicidal Ideation: No Goal/Treatment Plan - Goal/Treatment Plan Need for Continued Stay: Discharge may exacerbated symptoms Progress Toward Problem(s) and Goals/Treatment Plan: Schizophrenia, paranoid type; patient needs continued hospitalization for treatment and safety -Individual and group therapy -Continue Remeron 15 mg PO HS -Continue Risperdal 1 mg PO BID -Risperdal Consta 25 mg IM given on 04/14/17 -CBC 04/15/17: WBC 7.2, RBC 51., Hgb 12.8, Hct 41.2 -Disposition planning Estimated Date of D/C: 04/18/17
[2017-04-17] MEDS: Risperidone M tab 1 MG PO SCH ×2 (08:20→17:33)
--- NOTE | 2017-04-17 08:20 | PCM.PYCHPN ---
Psychiatric Progress Note - Psychiatric Progress Note Patient seen today, length of contact: Patient evaluated, case discussed w/ team , chart reviewed Patient Chief Complaint: "I'm so-so" Problems Identified/Issues Discussed: Patient is calm, cooperative. She reports feeling depressed, anxious and worried she is going to have a panic attack. She denies current AH/VH/ paranoia. She denies adverse effects to medications. Diagnostic Results: CBC 04/15/17: WBC 7.2, RBC 51., Hgb 12.8, Hct 41.2 Medication Change: No Medical Record Reviewed: Yes Consults ordered or reviewed: Medicine consult Mental Status Examination - Cognitive Function Orientation: Person, Place, Situation, Time Memory: Intact Attention: WNL Concentration: WNL Association: WNL Decription of patient's judgement and insights: Improving I/J - Mood Mood: Neutral - Affect Affect: Constricted - Speech Speech: Soft - Formal Thought Process Formal Thought Process: No Impairment Psychotic Thoughts and Behaviors: Denies current AH/VH/delusions - Suicidal Ideation Suicidal Ideation: No - Homicidal Ideation Homicidal Ideation: No Goal/Treatment Plan - Goal/Treatment Plan Need for Continued Stay: Discharge may exacerbated symptoms Progress Toward Problem(s) and Goals/Treatment Plan: Schizophrenia, paranoid type; patient needs continued hospitalization for treatment and safety -Individual and group therapy -Continue Remeron 15 mg PO HS -Continue Risperdal 1 mg PO BID -Risperdal Consta 25 mg IM given on 04/14/17 -CBC 04/15/17: WBC 7.2, RBC 51., Hgb 12.8, Hct 41.2 -Disposition planning Estimated Date of D/C: 04/18/17
[2017-04-17 09:47] VITALS: O2SAT 99
[2017-04-18] MEDS: Risperidone M tab 1 MG PO SCH ×2 (09:17→18:01)
--- NOTE | 2017-04-18 14:28 | PCM.PYCHPN ---
Psychiatric Progress Note - Psychiatric Progress Note Patient seen today, length of contact: Patient evaluated, case discussed w/ team , chart reviewed 30min Patient Chief Complaint: Matthew now awake through the daay which makes me anxious Problems Identified/Issues Discussed: PATIENT ON EVALUATION APPEARS LESS DEPRESSED, LESS GUARDED , ATTENDED FEW GROUPS , COMPLIANT WITH MEDICATION, NO REPORTED SIDE EFFECTS REPORTED IMPROVED SLEEP AND APPETITE, PATIENT HOWEVER REPORTED FEELING ANXIOUS AND ON FURTHER CLARIFICATION SHE REPORTED FEELING MORE AWAKE DURING THE DAY WHICH MAKES HER BORED, DISCUSSED WITH PATIENT OPTION OF ATTENDING DAY PROGRAM ON DISCHARGE DSM 5 Symptoms Update: SCHIZOPHRENIA Medication Change: No Medical Record Reviewed: Yes Mental Status Examination - Cognitive Function Orientation: Person, Place, Situation, Time Memory: Intact Attention: WNL Concentration: WNL Association: WNL - Mood Mood: Neutral - Affect Affect: Constricted - Speech Speech: Appropriate - Formal Thought Process Formal Thought Process: No Impairment - Suicidal Ideation Suicidal Ideation: No - Homicidal Ideation Homicidal Ideation: No Goal/Treatment Plan - Goal/Treatment Plan Need for Continued Stay: Discharge may exacerbated symptoms Progress Toward Problem(s) and Goals/Treatment Plan: patient shows clearing off, of the hallucinationsl , compliant with medications , no reported side effects, , brief cbt and supportive therapy provided SOCIAL WORK Jsocial work services to arrange for after care on discharge Estimated Date of D/C: 04/18/17
[2017-04-19 09:03] VITALS: RESP 18
[2017-04-19] MEDS: Risperidone M tab 1 MG PO SCH (09:31)
--- NOTE | 2017-04-20 14:01 | PCM.PYCHPN ---
Psychiatric Progress Note - Psychiatric Progress Note Patient seen today, length of contact: Patient evaluated, case discussed w/ team , chart reviewed 30min Patient Chief Complaint: I will cosider the day program Problems Identified/Issues Discussed: patient seen , reported feeling less anxious today, observed not to be pacing as yesterday, no signs of akathisia noted discussed with patient attending day program on discharge reported better mood , brighter affect, denied any current suicidal or homicidal ideations, denied perceptual disturbances DSM 5 Symptoms Update: schizophrenia Medication Change: Yes (decrease klonopin to 0.25 mg prn) Medical Record Reviewed: Yes Mental Status Examination - Cognitive Function Orientation: Person, Place, Situation, Time Memory: Intact Attention: WNL Concentration: WNL Association: WNL Fund of Knowledge: Poor - Mood Mood: Neutral - Affect Affect: Constricted - Speech Speech: Appropriate - Formal Thought Process Formal Thought Process: No Impairment - Suicidal Ideation Suicidal Ideation: No - Homicidal Ideation Homicidal Ideation: No Goal/Treatment Plan - Goal/Treatment Plan Need for Continued Stay: Discharge may exacerbated symptoms Progress Toward Problem(s) and Goals/Treatment Plan: patient responding to current psychopharmacological managment, continue with current treatment arrange for after discharge plan Estimated Date of D/C: 04/18/17
[2017-04-20 16:06] VITALS: PULSE 73
[2017-04-21 09:17] VITALS: BP 117/80; TEMP 98.1
--- NOTE | 2017-04-21 10:13 | PCM.PYCHPN ---
Psychiatric Progress Note - Psychiatric Progress Note Patient seen today, length of contact: Patient evaluated, case discussed w/ team , chart reviewed 30min Patient Chief Complaint: I feel anxious at times Problems Identified/Issues Discussed: patient on evaluation, reported feeling anxious , observed pacing on the unit , possible akathisia , will start klonopin 0.5mg bid decrease oral risperidone to 1mg daily , continue with risperidone 25 mg im q 2weeks follow up on psychopharmacological effects and side effect profile Medication Change: No Medical Record Reviewed: Yes Mental Status Examination - Cognitive Function Orientation: Person, Place, Situation, Time Memory: Intact Attention: WNL Concentration: WNL Association: WNL - Mood Mood: Neutral - Affect Affect: Constricted - Speech Speech: Appropriate - Formal Thought Process Formal Thought Process: No Impairment - Suicidal Ideation Suicidal Ideation: No - Homicidal Ideation Homicidal Ideation: No Goal/Treatment Plan - Goal/Treatment Plan Need for Continued Stay: Discharge may exacerbated symptoms Progress Toward Problem(s) and Goals/Treatment Plan: patient shows clearing off, of the hallucinationsl , compliant with medications , no reported side effects, , brief cbt and supportive therapy provided SOCIAL WORK Jsocial work services to arrange for after care on discharge Estimated Date of D/C: 04/18/17
--- NOTE | 2017-04-21 10:39 | PCM.PYCHDC ---
Mental Status Examination - Mental Status Examination Orientation: Person, Place, Situation Memory: Intact Mood: Neutral Affect: Constricted Speech: Appropriate Attention: WNL Concentration: WNL Fund of Knowledge: WNL Formal Thought Process: No Impairment Description of patient's judgement and insight: fair judgment poor insight Psychotic Thoughts and Behaviors: patient DENIED ANY CURRENT PSYCHOTIC SYMPTOMS NON ELICITED Suicidal Ideation: No Current Homicidal Ideation?: No Discharge Summary - Discharge Note Reason for Hospitalization: patient with previous diagnosis of schizophrenia paranoid type , patient has been partially compliant with medications and follow up , reportedly patient started experiencing perceptual disturbances including non specific non command auditory hallucinations and visual hallucinations, patient was brought to er for stabilization patient also reported feeling depressed with poor sleep and poor appetite denied manic symptoms denied suicidal or homicidal ideations Consultations:: List each consultation separately and include: 1. Reason for request. 2. Findings. 3. Follow-up Consultations: family practice Summary of Hospital Course include:: 1. Description of specific treatment plan utilized for patients during their course of treatmen. 2. Summarize the time- course for resolution of acute symptoms and/or regressed behaviors. 3. Describe issues identified and worked on during hospitalization. 4. Describe medication utilized. 5. Describe medical problems identified and treated. 6. Reassessment of suicide risk Summary of Hospital Course: patient on admission was started on risperidone and remeron , patient gradually showed clearing off of the hallucinations, reported improved sleep and better appetite patient was started on risperidone consta 25mg for better compliance patient showed brighter affect and gradually attended groups on discharge mental status was stable denied perceptual disturbances, non elicited , denied suicidal or homicidal ideations - Diagnosis (1) Depression Current Visit: Yes Status: Acute (2) Schizophrenia Current Visit: Yes Status: Chronic (3) Schizophrenia, paranoid type Current Visit: No Status: Acute - Final Diagnosis (DSM 5) Condition upon Discharge: STABLE Disposition: HOME/ ROUTINE Follow-up Treatment Plan: patient will follow up with outpatient clinic Prescriptions/Medication Reconciliation: clonazePAM [Klonopin] 0.25 mg PO BID PRN #15 tab PRN Reason: Anxiety Mirtazapine [Remeron] 15 mg PO HS 30 Days #30 tab risperiDONE [RisperDAL Tab] 1 mg PO DAILY 30 Days #30 tab - Antipsychotic Medications Pt discharged on 2 or more routine antipsychotic medications: No
== END 2017-04-21 13:56 | disposition home or self-care (01) | DRG 430 ==
LOC: H.ER 15:35 → H.ERHOLD 17:38 → H.PSYCH 19:36
PROVIDERS: ADMIT Psychiatry & Neurology Psychiatry; ATTEND Psychiatry & Neurology Psychiatry
PROC: GZHZZZZ Group Psychotherapy (ICD-10-PCS; principal; 2017-04-10)
PROC: GZ56ZZZ Individual Psychotherapy, Supportive (ICD-10-PCS; 2017-04-10)
DX: F20.0 Paranoid schizophrenia (principal); F32.9 Major depressive disorder, single episode, unspecified; Z91.013 Allergy to seafood